=== PATIENT | male | born 1975 | race Two or more races ===

== ENCOUNTER 2019-02-18 16:58 | Inpatient (IN) | payer MEDICAID ==
[~2019-02-18] VITALS: Ht 180.3 cm; Wt 90.7 kg
[~2019-02-18 16:58] MED LIST: ASPIRIN-LOW81 MG GT; ATORVASTATIN CA40 MG GT; CARVEDILOL25 MG GT; HEPARIN SO5000 UNIT2 SUBQ; LACTULOSE20 GM/301 GT; NEXIUM40 MG GT; PLAVIX75 MG GT; SEROQUEL25 MG GT; SERTRALINE HCL25 MG GT; ZYRTEC10 MG GT
--- NOTE | 2019-02-18 16:58 | NUR ---
ED Nurse Note: PT BROUGHT IN BY EMS FROM [facility] DUE TO ABNORMAL LABS. LOW HGB OF 7.4 AND HCT OF 25.8 WHICH WERE TAKEN YESTERDAY. PT IS TRACH DEPENDENT AND NON VERBAL. UNABLE TO FOLLOW COMMANDS. SKIN IS PALE BUT WARM TO TOUCH. G TUBE IN PLACE.
--- NOTE | 2019-02-18 17:00 | NUR ---
Received pt on trach with vent setting AC 16-500ml-40%FiO2- peep of 5. Pt is trach dependent with Shiley cuffed size 8.0, secured by trach tie. Pt is awake but unable to follow commands. Redness noted around the stoma. Rosas rhonchi B/S heard upon auscultation, suctioned moderate amount thick/thin/frothy clear white secretions without incidents. Alarms are set and audible, vent is plugged into the red outlet, ambu bag is at bedside. Family member at bedside. No SOB or resp distress noted. PHILIP Montgomery made aware. Will continue to monitor.
--- NOTE | 2019-02-18 17:13 | NUR ---
ED Nurse Note: COLLECTED BLOOD/URINE THEN SENT.
--- NOTE | 2019-02-18 17:21 | Emergency Room Report ---
History of Present Illness General Chief Complaint: Abnormal Labs Source: Medical Record Present Illness HPI 43-year-old male history of tracheostomy presents with patient is nonverbal, patient has a tracheostomy, patient found to be anemic in the low sevens, unknown if patient is symptomatic, patient sent in for blood transfusion, unable to obtain a history from patient given the fact that he has a tracheostomy and is completely nonverbal. Onset: Unknown, no aggravating or alleviating factors, severity is mild Allergies: Coded Allergies: No Known Allergies (Unverified , 02/18/19) Patient History Limited by: medical condition - Tracheostomy, nonverbal Past Medical History: see triage record Reviewed Nursing Documentation: PMH: Agreed; PSxH: Agreed Nursing Documentation-PMH Past Medical History: No History, Except For Hx Cardiac Problems: Yes - HX OF CARDIAC ARREST, STEMI, HYPERLIPIDEMIA Hx Hypertension: Yes History Of Psychiatric Problem: Yes - SCHIZO, DEPRESSION Review of Systems All Other Systems: limited - Tracheostomy, nonverbal Physical Exam Vital Signs Date Time Temp Pulse Resp B/P (MAP) Pulse Ox O2 Delivery O2 Flow Rate FiO2 02/18/19 16:47 66 18 100/66 (77) 99 Trach Collar 5.0 Sp02 EP Interpretation: reviewed, normal General Appearance: well appearing, no apparent distress, alert Head: normocephalic, atraumatic Eyes: bilateral eye PERRL, bilateral eye EOMI ENT: uvula midline, moist mucus membranes Neck: supple, thyroid normal, supple/symm/no masses, other - Tracheostomy present Respiratory: lungs clear, no respiratory distress, no retraction, no accessory muscle use Cardiovascular #1: normal peripheral pulses, regular rate, rhythm, no edema, no gallop, no murmur Gastrointestinal: non tender, soft, no guarding, no rebound Musculoskeletal: normal inspection Neurologic: alert, other - Moving all 4 extremities Skin: no rash, warm/dry Medical Decision Making Diagnostic Impression: Primary Impression: Low hemoglobin Additional Impression: Symptomatic anemia ER Course 43-year-old male presents with anemia, [facility]. Labs drawn Transfusion started Patient admitted to Dr. Washington Laboratory Tests Test 02/18/19 17:00 White Blood Count 11.3 K/UL (4.8-10.8) H Red Blood Count 2.42 M/UL (4.70-6.10) L Hemoglobin 7.8 G/DL (14.2-18.0) L Hematocrit 23.4 % (42.0-52.0) L Mean Corpuscular Volume 97 FL (80-99) Mean Corpuscular Hemoglobin 32.2 PG (27.0-31.0) H Mean Corpuscular Hemoglobin Concent 33.2 G/DL (32.0-36.0) Red Cell Distribution Width 12.4 % (11.6-14.8) Platelet Count 378 K/UL (150-450) Mean Platelet Volume 7.8 FL (6.5-10.1) Neutrophils (%) (Auto) % (45.0-75.0) Lymphocytes (%) (Auto) % (20.0-45.0) Monocytes (%) (Auto) % (1.0-10.0) Eosinophils (%) (Auto) % (0.0-3.0) Basophils (%) (Auto) % (0.0-2.0) Differential Total Cells Counted 100 Neutrophils % (Manual) 66 % (45-75) Lymphocytes % (Manual) 20 % (20-45) Monocytes % (Manual) 8 % (1-10) Eosinophils % (Manual) 2 % (0-3) Basophils % (Manual) 2 % (0-2) Band Neutrophils 2 % (0-8) Platelet Estimate Adequate Platelet Morphology Normal Polychromasia 1+ Macrocytosis 1+ Prothrombin Time 11.2 SEC (9.30-11.50) Prothrombin Time INR 1.1 (0.9-1.1) PTT 24 SEC (23-33) Urine Color Yellow Urine Appearance Clear Urine pH 5 (4.5-8.0) Urine Specific [place] 1.020 (1.005-1.035) Urine Protein Negative (NEGATIVE) Urine Glucose (UA) Negative (NEGATIVE) Urine Ketones Negative (NEGATIVE) Urine Blood Negative (NEGATIVE) Urine Nitrite Negative (NEGATIVE) Urine Bilirubin Negative (NEGATIVE) Urine Urobilinogen Normal MG/DL (0.0-1.0) Urine Leukocyte Esterase Negative (NEGATIVE) Sodium Level 149 MMOL/L (136-145) H Potassium Level 3.5 MMOL/L (3.5-5.1) Chloride Level 109 MMOL/L (98-107) H Carbon Dioxide Level 30 MMOL/L (21-32) Anion Gap 10 mmol/L (5-15) Blood Urea Nitrogen 47 mg/dL (7-18) H Creatinine 1.6 MG/DL (0.55-1.30) H Estimate Glomerular Filtration Rate 47.4 mL/min (>60) Glucose Level 112 MG/DL (74-106) H Lactic Acid Level 1.00 mmol/L (0.4-2.0) Calcium Level 9.0 MG/DL (8.5-10.1) Phosphorus Level 4.8 MG/DL (2.5-4.9) Magnesium Level 1.8 MG/DL (1.8-2.4) Total Bilirubin 0.4 MG/DL (0.2-1.0) Aspartate Amino Transferase (AST) 91 U/L (15-37) H Alanine Aminotransferase (ALT) 103 U/L (12-78) H Alkaline Phosphatase 131 U/L (46-116) H Total Creatine Kinase 324 U/L (26-308) H Creatine Kinase MB 3.5 NG/ML (0.0-3.6) Creatine Kinase MB Relative Index 1.0 Troponin I 0.054 ng/mL (0.000-0.056) Pro-B-Type Natriuretic Peptide 2915 pg/mL (0-125) H Total Protein 7.8 G/DL (6.4-8.2) Albumin 3.0 G/DL (3.4-5.0) L Globulin 4.8 g/dL Albumin/Globulin Ratio 0.6 (1.0-2.7) L EKG Diagnostic Results EKG Time: 17:12 EP Interpretation: NSR, rate 66, QTc 425, no acute ST elevations Rate: normal Rhythm: NSR ST Segments: other - T wave V5 V6, 3, aVF, 2 Rhythm Strip Diag. Results Rhythm Strip Time: 17:27 EP Interpretation: yes Rate: 66 Rhythm: NSR, no PVC's, no ectopy Chest X-Ray Diagnostic Results Chest X-Ray Diagnostic Results : Chest X-Ray Ordered: Yes # of Views/Limited/Complete: 1 View Indication: Other - anemia EP Interpretation: Yes Interpretation: no consolidation, no effusion, no pneumothorax, no acute cardiopulmonary disease Impression: No acute disease Electronically Signed by: Tomy Chaves MD Last Vital Signs Date Time Temp Pulse Resp B/P (MAP) Pulse Ox O2 Delivery O2 Flow Rate FiO2 02/18/19 16:47 66 18 100/66 (77) 99 Trach Collar 5.0 Disposition: ADMITTED INPATIENT Condition: Stable Tomy Chaves MD Feb 18, 2019 17:21
[2019-02-18 17:30] VITALS: BP 110/75
--- NOTE | 2019-02-18 17:33 | Diagnostic Imaging Report ---
Indication: Shortness of breath Technique: One view of the chest Comparison: none Findings: There is a tracheostomy in place. The heart is mildly enlarged. There is some atelectasis at the right lung base. Lungs and pleural spaces otherwise clear. Impression: No acute process Borderline cardiomegaly
[2019-02-18 17:43] LABS: ANION GAP 10 mmol/L (5-15); BLOOD UREA NITROGEN 47 mg/dL (7-18); CARBON DIOXIDE 30 MMOL/L (21-32); CHLORIDE 109 MMOL/L (98-107); CREATININE 1.6 MG/DL (0.55-1.30); POTASSIUM 3.5 MMOL/L (3.5-5.1); SODIUM 149 MMOL/L (136-145)
[2019-02-18 17:54] LABS: HEMATOCRIT 23.4 % (42.0-52.0); HEMOGLOBIN 7.8 G/DL (14.2-18.0); MEAN CORPUSCULAR VOLUME 97 FL (80-99); PLATELET COUNT 378 K/UL (150-450); RED BLOOD COUNT 2.42 M/UL (4.70-6.10); RED CELL DISTRIBUTION WIDTH 12.4 % (11.6-14.8); WHITE BLOOD COUNT 11.3 K/UL (4.8-10.8)
[2019-02-18 17:56] LABS: ALANINE AMINOTRANSFERASE 103 U/L (12-78); ALBUMIN/GLOBULIN RATIO 0.6 (1.0-2.7); ALKALINE PHOSPHATASE 131 U/L (46-116); APPEARANCE,URINE CLEAR; ASPARTATE AMINO TRANSFERASE 91 U/L (15-37); BILIRUBIN, URINE NEGATIVE (NEGATIVE); BILIRUBIN,TOTAL 0.4 MG/DL (0.2-1.0); CKMB 3.5 NG/ML (0.0-3.6); CREATINE KINASE 324 U/L (26-308); GLUCOSE, URINE (UA) NEGATIVE (NEGATIVE); KETONES,URINE NEGATIVE (NEGATIVE); LEUKOCYTE ESTERASE ,URINE NEGATIVE (NEGATIVE); NITRITE,URINE NEGATIVE (NEGATIVE); PH,URINE 5 (4.5-8.0); PHOSPHORUS 4.8 MG/DL (2.5-4.9); PROTEIN,URINE NEGATIVE (NEGATIVE); UROBILINOGEN,URINE NORMAL MG/DL (0.0-1.0)
--- NOTE | 2019-02-18 17:58 | NUR ---
ED Nurse Note: FAMILY MEMBERS AT THE BED SIDE.
[2019-02-18 18:00] LABS: COLOR,URINE YELLOW; INR 1.1 (0.9-1.1)
[2019-02-18] MEDS ORDERED: LORazepam Inj 2mg/ml 1ml IV ONE ×2 (18:15→19:45)
--- NOTE | 2019-02-18 19:17 | NUR ---
RESPIRATORY NOTE: Received pt in ED on AC 16, 500VT, 40%, PEEP +5. Pt is trach-dependent w/ a cuffed, Shiley 8 tube. Pt awake/disoriented. B/S cleve. rhonchi, sxn small to moderate amounts of thick, pale-yellow secretions. Vent plugged into red outlet, ambubag at bedside. Pt in no apparent distress at this time. Will continue plan of care.
--- NOTE | 2019-02-18 19:27 | NUR ---
HAND-OFF: Report given to KWAN PALACIOS.
[2019-02-18 19:30] VITALS: BP 105/71
--- NOTE | 2019-02-18 19:30 | NUR ---
ED Nurse Note: RECIEVED REPORT FROM PHILIP ALEMAN AND ASSUMED CARE.
[2019-02-18] MEDS ORDERED: LORazepam Inj 2mg/ml 1ml ONE (19:33)
--- NOTE | 2019-02-18 19:35 | NUR ---
ED Nurse Note: NOTED PT RESTLESS, TRYING TO REMOVE IV LINE AND TRACH, ERMD NOTIFIED, RECEIVED ORDER ATIVAN 2MG VIA IVP, ONCE.
--- NOTE | 2019-02-18 19:40 | NUR ---
ED Nurse Note: NOTED SKIN SCRATCH SNELL ON ABD AND PENILE AREA, NOTED SKIN MACERATION ON POSTERIOR SACRAL AREA AND PENILE AREA W/ RASH AND REDNESS, WILL CONT MONITOR.
[2019-02-18 20:00] VITALS: BP 109/60
--- NOTE | 2019-02-18 20:00 | NUR ---
ED Nurse Note: PT CONSTANTLY MOVING ALL EXTREMITIES, MAKING ATTEMPTS TO REMOVE TRACH AND IV LINE, ERMD NOTIFIED, NONBEHAVIORAL RESTRAINTS ORDER RECEIVED AND APPLIED, FAMILY EDUCATED () VIA VERBAL DISCUSSION, NO INJURIES OCCURED AT THIS TIEM, CMS INTACT BUE/BLE, PULSES +2 BUE/BLE, SKIN INTACT, WILL CONT MONITOR.
[2019-02-18] MEDS ORDERED: DiphenhydrAMINE 50mg/ml Inj IVP ONE (20:15)
--- NOTE | 2019-02-18 20:16 | NUR ---
ED Nurse Note: PT'S AND DAUGHTER AT THE BEDSIDE, NOTIFIED REGARDING BLOOD TRANSFUSION, CONSENT FORM SIGNED, PT'S FAMILY MEMBER VERBALIZED UNDERSTANDING AND THE POSSIBLE RISKS AND COMPLICATIONS.
--- NOTE | 2019-02-18 20:25 | NUR ---
ED Nurse Note: PT CLEANED AND CHANGED INTO NEW GOWN, WARM BLANKET PROVIDED FOR COMFORT, SAFETY PRECAUTIONS IN PLACE, WILL CONT MONITOR. VSS. NSR ON PHARMACIST TECHNICIAN.
--- NOTE | 2019-02-18 20:40 | NUR ---
ED Nurse Note: CALLED BLOOD BANK TO VERIFY BLOOD WORK, BLOOD NOT PREPARED AT THIS TIME. PER TECH, WILL CALL BACK WHEN THE BLOOD IS READY.
[2019-02-18 21:05] VITALS: BP 99/65
--- NOTE | 2019-02-18 21:35 | NUR ---
ED Nurse Note: NO BLOOD TRANSFUSION REACTION NOTED AT THIS TIME. WILL CONT MONITOR.
--- NOTE | 2019-02-18 21:42 | NUR ---
ED Nurse Note: CALLED TO GIVE REPORT TO SDU, RECEIVING RN CURRENTLY UNAVAILABLE, PER MALLORY, RN WILL CALL BACK IN 15 MIN.
--- NOTE | 2019-02-18 22:00 | NUR ---
ED Nurse Note: REPORT GIVEN TO PHILIP LIM FROM SDU.
--- NOTE | 2019-02-18 22:10 | NUR ---
ED Nurse Note: pt transferred to SDU, pt has no belongings, sent w/ list, family at the bedside, vss, nsr on child monitor, care endorsed to PHILIP Chavis from sdu. RT present.
[2019-02-18 22:15] VITALS: BP 116/79
--- NOTE | 2019-02-18 22:15 | NUR ---
NURSE NOTES: Patient arrived from ED via gurney and placed into bed. Patient is trach Shiley 8 to vent with settings of AC:16, TV:500, FiO2:40% PEEP:5 and O2 saturating at 100%. manager monitoring is placed, linens and gown changed. Patient shows no signs of distress. Family member at bedside. No belongings. Report received from PHILIP Vega. Will initiate plan of care.
[2019-02-19] VITALS: BP 107/74
[2019-02-19] MEDS ORDERED: Morphine Sulfate 2mg/ml Inj(IV/IM USE ONLY) IVP PRN (01:15)
[2019-02-19] MEDS ORDERED: Nitroglycerin Subl 0.4mg tab SL PRN (01:15)
[2019-02-19] MEDS ORDERED: Miralax 17gm pkt ORAL PRN (01:15)
[2019-02-19] MEDS: D5 1/2NS 1,000 ML IV SCH ×2 (02:36→15:16)
[2019-02-19 04:00] VITALS: BP 130/75
[2019-02-19 04:33] LABS: BASOPHILS % (AUTO) 0.7 % (0.0-2.0); EOSINOPHILS % (AUTO) 2.5 % (0.0-3.0); HEMATOCRIT 30.7 % (42.0-52.0); HEMOGLOBIN 9.8 G/DL (14.2-18.0); LYMPHOCYTES % (AUTO) 18.5 % (20.0-45.0); MEAN CORPUSCULAR VOLUME 96 FL (80-99); MONOCYTES % (AUTO) 5.9 % (1.0-10.0); NEUTROPHILS % (AUTO) 72.4 % (45.0-75.0); PLATELET COUNT 373 K/UL (150-450); RED BLOOD COUNT 3.18 M/UL (4.70-6.10); RED CELL DISTRIBUTION WIDTH 13.8 % (11.6-14.8); WHITE BLOOD COUNT 11.5 K/UL (4.8-10.8)
[2019-02-19 04:47] LABS: ALANINE AMINOTRANSFERASE 94 U/L (12-78); ALBUMIN 3.3 G/DL (3.4-5.0); ALBUMIN/GLOBULIN RATIO 0.7 (1.0-2.7); ALKALINE PHOSPHATASE 124 U/L (46-116); ANION GAP 11 mmol/L (5-15); ASPARTATE AMINO TRANSFERASE 77 U/L (15-37); BILIRUBIN,TOTAL 0.5 MG/DL (0.2-1.0); BLOOD UREA NITROGEN 42 mg/dL (7-18); CALCIUM 9.3 MG/DL (8.5-10.1); CARBON DIOXIDE 29 MMOL/L (21-32); CHLORIDE 111 MMOL/L (98-107); CREATININE 1.5 MG/DL (0.55-1.30); PHOSPHORUS 4.5 MG/DL (2.5-4.9); POTASSIUM 3.8 MMOL/L (3.5-5.1); SODIUM 151 MMOL/L (136-145)
--- NOTE | 2019-02-19 06:31 | NUR ---
NURSE NOTES: Observed patient continuous attempting to remove lines, condom catheter and tugging on GTube. Patient is also seen being restless; shifting around in bed which potentially can cause a fall. Also, swinging of arms and legs to personnel throughout the night. Per patient's spouse that Neema Balderas also utilizes restraints for patient. Bilateral soft wrist restraints are placed and Dr. Dietrich made aware.
--- NOTE | 2019-02-19 07:00 | NUR ---
NURSE NOTES: received patient report from tiny hernandez. patient is on bed awake. on B soft wrist restraints. not in acute distress. on vent at prescribed rate. bed is low and locked for safety. will follow plan of care.
--- NOTE | 2019-02-19 07:15 | NUR ---
HAND-OFF: Report given to PHILIP DONAHUE.
[2019-02-19] MEDS: Albuterol/Ipratropium 3ml neb HHN SCH ×3 (07:17→22:44)
[2019-02-19 08:00] VITALS: BP 118/80
[2019-02-19] MEDS: Lactulose 20gm/30ml UDC GT SCH (08:37)
[2019-02-19] MEDS: Aspirin EC 81mg tab ORAL SCH (08:37)
--- NOTE | 2019-02-19 08:47 | General Progress Note ---
Assessment/Plan Assessment/Plan: Anemia chronic respiratory failure GT dependent elevated LFTS GTF>> increase to 60 cc Anemia work up abd us hepatitis panel fu labs GI procedures on Thursday if needed Subjective ROS Limited/Unobtainable: No Allergies: Coded Allergies: No Known Allergies (Unverified , 02/18/19) Objective Last 24 Hour Vital Signs Date Time Temp Pulse Resp B/P (MAP) Pulse Ox O2 Delivery O2 Flow Rate FiO2 02/19/19 08:00 98.2 79 27 118/80 (93) 100 02/19/19 07:22 62 16 100 Mechanical Ventilator 40 02/19/19 07:13 72 17 100 Mechanical Ventilator 40 02/19/19 07:09 65 18 40 02/19/19 04:55 76 21 40 02/19/19 04:00 70 02/19/19 04:00 Mechanical Ventilator 02/19/19 04:00 97.5 64 16 130/75 (93) 100 02/19/19 04:00 40 02/19/19 03:22 62 16 40 02/19/19 00:38 72 16 40 02/19/19 00:00 97.3 64 19 107/74 (85) 100 02/19/19 00:00 40 02/19/19 00:00 Mechanical Ventilator 02/18/19 23:29 70 02/18/19 23:00 66 24 40 02/18/19 22:15 Mechanical Ventilator 02/18/19 22:15 97.7 68 19 116/79 (91) 100 02/18/19 22:10 97.7 61 16 105/65 100 Mechanical Ventilator 02/18/19 22:05 97.7 61 16 02/18/19 21:35 97.7 63 16 02/18/19 21:20 98.1 63 17 02/18/19 21:15 98.1 66 17 02/18/19 21:10 98.3 65 18 02/18/19 21:05 98.3 66 18 02/18/19 21:05 98.3 66 18 99/65 100 Mechanical Ventilator 5.0 40 02/18/19 21:01 68 20 40 02/18/19 20:00 98.6 74 19 109/60 100 Mechanical Ventilator 5.0 40 02/18/19 20:00 72 24 Mechanical Ventilator 5.0 40 02/18/19 19:30 98.6 75 8 105/71 100 Mechanical Ventilator 5.0 40 02/18/19 19:13 72 24 40 02/18/19 17:30 71 15 110/75 100 Mechanical Ventilator 5.0 40 02/18/19 17:00 65 17 100 Mechanical Ventilator 40 02/18/19 17:00 65 17 40 02/18/19 16:58 40 02/18/19 16:47 66 18 100/66 (77) 99 Trach Collar 5.0 Intake and Output 02/18/19 02/19/19 18:59 06:59 Intake Total 425 ml Balance 425 ml Intake Free Water 60 ml IV Total 305 ml Tube Feeding 60 ml # Voids 1 1 # Bowel Movements 1 Laboratory Tests 02/18/19 17:00: White Blood Count 11.3H, Red Blood Count 2.42L, Hemoglobin 7.8L, Hematocrit 23.4L, Mean Corpuscular Volume 97, Mean Corpuscular Hemoglobin 32.2H, Mean Corpuscular Hemoglobin Concent 33.2, Red Cell Distribution Width 12.4, Platelet Count 378, Mean Platelet Volume 7.8, Neutrophils (%) (Auto) , Lymphocytes (%) ( Auto) , Monocytes (%) (Auto) , Eosinophils (%) (Auto) , Basophils (%) (Auto) , Differential Total Cells Counted 100, Neutrophils % (Manual) 66, Lymphocytes % ( Manual) 20, Monocytes % (Manual) 8, Eosinophils % (Manual) 2, Basophils % ( Manual) 2, Band Neutrophils 2, Platelet Estimate Adequate, Platelet Morphology Normal, Polychromasia 1+, Macrocytosis 1+, Prothrombin Time 11.2, Prothromb Time International Ratio 1.1, Activated Partial Thromboplast Time 24, Urine Color Yellow, Urine Appearance Clear, Urine pH 5, Urine Specific [place] 1.020, Urine Protein Negative, Urine Glucose (UA) Negative, Urine Ketones Negative, Urine Blood Negative, Urine Nitrite Negative, Urine Bilirubin Negative, Urine Urobilinogen Normal, Urine Leukocyte Esterase Negative, Sodium Level 149H, Potassium Level 3.5, Chloride Level 109H, Carbon Dioxide Level 30, Anion Gap 10 , Blood Urea Nitrogen 47H, Creatinine 1.6H, Estimat Glomerular Filtration Rate 47.4, Glucose Level 112H, Lactic Acid Level 1.00, Calcium Level 9.0, Phosphorus Level 4.8, Magnesium Level 1.8, Total Bilirubin 0.4, Aspartate Amino Transf (AST /SGOT) 91H, Alanine Aminotransferase (ALT/SGPT) 103H, Alkaline Phosphatase 131H , Total Creatine Kinase 324H, Creatine Kinase MB 3.5, Creatine Kinase MB Relative Index 1.0, Troponin I 0.054, Pro-B-Type Natriuretic Peptide 2915H, Total Protein 7.8, Albumin 3.0L, Globulin 4.8, Albumin/Globulin Ratio 0.6L 02/19/19 03:43: White Blood Count 11.5H, Red Blood Count 3.18L, Hemoglobin 9.8L, Hematocrit 30.7 #L, Mean Corpuscular Volume 96, Mean Corpuscular Hemoglobin 30.8, Mean Corpuscular Hemoglobin Concent 31.9L, Red Cell Distribution Width 13.8, Platelet Count 373, Mean Platelet Volume 8.9, Neutrophils (%) (Auto) 72.4, Lymphocytes (%) (Auto) 18.5L, Monocytes (%) (Auto) 5.9, Eosinophils (%) (Auto) 2.5, Basophils (%) (Auto) 0.7, Sodium Level 151H, Potassium Level 3.8, Chloride Level 111H, Carbon Dioxide Level 29, Anion Gap 11, Blood Urea Nitrogen 42H, Creatinine 1.5H, Estimat Glomerular Filtration Rate 51.1, Glucose Level 121H, Calcium Level 9.3, Phosphorus Level 4.5, Magnesium Level 1.7L, Total Bilirubin 0.5, Aspartate Amino Transf (AST/SGOT) 77H, Alanine Aminotransferase (ALT/SGPT) 94H, Alkaline Phosphatase 124H, Troponin I 0.051, Total Protein 7.8, Albumin 3.3L, Globulin 4.5, Albumin/Globulin Ratio 0.7L Height (Feet): 5 Height (Inches): 11.00 Weight (Pounds): 200 General Appearance: no apparent distress EENT: normal ENT inspection Neck: supple Cardiovascular: normal rate Respiratory/Chest: decreased breath sounds Abdomen: normal bowel sounds, non tender, soft Extremities: non-tender Servando Sharif MD Feb 19, 2019 08:47
[2019-02-19] MEDS ORDERED: Carvedilol 25mg Tab GT SCH (09:00)
[2019-02-19 12:00] VITALS: BP 115/72
[2019-02-19] MEDS: LORazepam Inj 2mg/ml 1ml IV PRN ×3 (13:16→23:26)
--- NOTE | 2019-02-19 15:54 | History & Physical ---
History and Physical History & Physicial Dictated for Int Med-Dr Washington no. [id number]. Carmelo Figueroa MD Feb 19, 2019 15:54
[2019-02-19 16:00] VITALS: BP 109/73
--- NOTE | 2019-02-19 16:40 | NUR ---
CASE MANAGEMENT: REVIEW 43Y/M BIBA FROM [facility] CC: ABNORMAL LABS SI: ANEMIA . CHRONIC RESP FAILURE . T 98.6 HR 75 RR 24 BP 105/71 SAT 100% MECH VENT FIO2 40 H/H 7.8/23.4 NA 149 BUN 47 CR 1.6 AST 91 ALT 103 BNP 2915 IS: ATIVAN IV X1 NS IVF BOLUS X1 BENADRYL IV X1 PRBC'S 1UNIT PATIENT ADMITTED TO STEP DOWN UNIT 02/18/2019 DCP: PATIENT IS FROM [facility]
--- NOTE | 2019-02-19 18:29 | NUR ---
NURSE NOTES: per family request, condom catheter was removed. benefits of keeping the patient dry explained to the family but family member still requested to removed it. family member said that it is uncomfortable for him.
--- NOTE | 2019-02-19 19:15 | NUR ---
NURSE NOTES: Received patient from PHILIP Shepard. Will continue plan of care.
[2019-02-19 20:00] VITALS: BP 122/70
--- NOTE | 2019-02-19 21:15 | NUR ---
NURSE NOTES: Family member request to release the left wrist restraint to see if patient is more comfortable turning to the side. Informed family that it is possible but the risk of patient pulling on medical devices and turning out of bed and falling. They are aware and will take responsibility to monitor him while off restraint. Restraint taken off, bed rails are raised and family members remain at bedside.
[2019-02-19] MEDS: Sertraline 50mg tab GT SCH (21:32)
[2019-02-19] MEDS: Atorvastatin 80mg tab GT SCH (21:32)
--- NOTE | 2019-02-19 21:47 | Diagnostic Imaging Report ---
EXAM: US Abdomen Complete CLINICAL HISTORY: ABD PAIN TECHNIQUE: Real-time ultrasound of the abdomen (complete) with image documentation. COMPARISON: No relevant prior studies available. FINDINGS: Liver: Increased echogenicity. 18 cm. No mass. No intrahepatic bile duct dilation. Gallbladder: No gallstones. No pericholecystic fluid. No gallbladder wall thickening. Negative Britt's sign. Common bile duct: No stones. No dilation. 6 mm. Pancreas: Unremarkable. Kidneys: 11 cm right and 12 cm left. No stones. No solid mass. No hydronephrosis. Spleen: Unremarkable. 1 cm. Aorta: No aneurysm. Inferior vena cava: Unremarkable. IMPRESSION: Hepatic steatosis.
[2019-02-20] VITALS: BP 126/89
--- NOTE | 2019-02-20 03:00 | History and Physical Report ---
DATE OF ADMISSION: 02/18/2019 CHIEF COMPLAINT: The patient is a 43-year-old male who presents with abnormal laboratories. HISTORY OF PRESENT ILLNESS: The patient was admitted to [facility] from 01/29/2019 to 02/16/2019. The patient is admitted for ST elevated myocardial infarction. The patient had suffered a cardiac arrest. The patient is status post percutaneous transluminal coronary angioplasty with two stents placed. The patient is also status post tracheostomy and percutaneous endoscopic gastrostomy tube placement. The patient himself is nonverbal and much of the history and physical is taken from the patient's chart. According to staff at [facility], the patient began to experience shortness of breath yesterday 02/18/2019. The patient has a hemoglobin of 7.4. The patient was transferred to [facility] for anemia workup. REVIEW OF SYSTEMS: Unable to assess secondary to the patient's mental status. PAST MEDICAL HISTORY: Significant for: 1. ST-elevated myocardial infarction on 01/29/2019 as above. 2. Acute on chronic renal failure. 3. Hypotension. 4. Coronary artery disease . 5. Hypercholesterolemia. 6. Schizophrenia. PAST SURGICAL HISTORY: Significant for: 1. PEG placement. 2. Tracheostomy. 3. Percutaneous transluminal coronary angioplasty as above. CURRENT MEDICATIONS: 1. Aspirin 81 mg p.o. daily. 2. Atorvastatin 80 mg per G-tube nightly. 3. Carvedilol 25 mg per G-tube twice daily. 4. Sertraline 50 mg per G-tube nightly. 5. Heparin 5000 units subcutaneously twice daily. 6. Esomeprazole 40 mg per G-tube daily. 7. Plavix 75 mg per G-tube daily. 8. Seroquel 50 mg per G-tube daily. 9. Zyrtec 10 mg per G-tube daily. 10. Bicitra 30 mL per G-tube twice daily. 11. Vancomycin 125 mg per G-tube four times daily. 12. Lactulose 30 mL per G-tube daily. 13. Pro-Stat 30 grams per G-tube daily. 14. Benadryl 25 mg per G-tube q.6 h. 15. Haldol 2 mg IM q.4 h. p.r.n. ALLERGIES: No known drug allergies. SOCIAL HISTORY: The patient is . The patient is a resident of [facility] as above. PHYSICAL EXAMINATION: VITAL SIGNS: Temperature 97.3, respirations 19, pulse 64, and blood pressure 107/74. GENERAL: The patient is well-developed and well-nourished. Nonverbal male, who is ventilator dependent. HEENT: Eyes, pupils equal and responsive to light and accommodation. Extraocular movements are intact. NECK: Supple without lymphadenopathy. Tracheostomy is present. CARDIOVASCULAR: Regular rate. S1 and S2 normal without murmurs, rubs, or gallops. CHEST: A few diffuse wheezes bilaterally. Otherwise, clear to auscultation without rales. ABDOMEN: Soft, nontender, and nondistended. Positive bowel sounds. No evidence of hepatosplenomegaly. Currently, no rebound or guarding noted. EXTREMITIES: Negative for clubbing, cyanosis, or edema. NEUROLOGIC: Unable to assess. LABORATORY STUDIES: WBC 11.3, hemoglobin 7.8, hematocrit 23.4, and platelets 338,000. Sodium 149, potassium 3.5, chloride 109, CO2 30, BUN 47, creatinine 1.6, and glucose 112. AST elevated at 91, ALT elevated at 103, and troponin 0.054. Urinalysis showed within normal limits. ASSESSMENT: This is a 43-year-old male with. 1. Anemia. 2. Vent-dependent respiratory failure. 3. Coronary artery disease, status post ST elevated myocardial infarction. 4. Anoxic encephalopathy. 5. Dysphagia. 6. Renal failure. 7. Hypertension. 8. Hypercholesteremia. 9. Schizophrenia. 10. Anemia, workup is pending. PLAN: 1. A Gastroenterology consultation is obtained with Dr. Servando Sharif for possible endoscopy/colonoscopy. We will follow recommendations of Gastroenterology. The patient will be transfused RBC when hemoglobin is less than 8.0. 2. Vent-dependent respiratory failure. A Pulmonary consultation obtained with Dora Dietrich. We will follow recommendation of Pulmonary. 3. Coronary artery disease/ST-elevated myocardial infarction. A Cardiology consultation with Dr. Tod Smalls. 4. Anoxic encephalopathy. 5. Dysphagia. The patient is status post percutaneous endoscopic gastrostomy tube placement. 6. Renal failure. A Nephrology consultation obtained with Dr. Altman. 7. Hypertension. Continue Coreg as above. 8. Hypercholesterolemia. Continue atorvastatin as above. 9. Schizophrenia . Carmelo Seth M.D. DR: JUANCARLOS JOB#: [id number] CC:
[2019-02-20] MEDS: D5 1/2NS 1,000 ML IV SCH ×2 (03:46→16:13)
[2019-02-20] MEDS: LORazepam Inj 2mg/ml 1ml IV PRN ×2 (03:47→20:37)
[2019-02-20 04:00] VITALS: BP 136/61
--- NOTE | 2019-02-20 06:32 | General Progress Note ---
Assessment/Plan Assessment/Plan: Anemia chronic respiratory failure GT dependent elevated LFTS GTF>> increase to 60 cc Anemia work up abd us hepatitis panel fu labs GI procedures on Thursday if needed Subjective ROS Limited/Unobtainable: No Allergies: Coded Allergies: No Known Allergies (Unverified , 02/18/19) Objective Last 24 Hour Vital Signs Date Time Temp Pulse Resp B/P (MAP) Pulse Ox O2 Delivery O2 Flow Rate FiO2 02/20/19 05:01 87 21 40 02/20/19 04:00 97.2 104 31 136/61 (86) 100 02/20/19 04:00 Mechanical Ventilator 02/20/19 04:00 40 02/20/19 03:37 104 02/20/19 02:44 88 22 40 02/20/19 00:40 82 24 40 02/20/19 00:00 Mechanical Ventilator 02/20/19 00:00 97.8 93 29 126/89 (101) 100 02/19/19 23:34 92 02/19/19 22:51 81 18 100 Mechanical Ventilator 40 02/19/19 22:44 84 21 100 Mechanical Ventilator 40 02/19/19 22:42 84 21 40 02/19/19 20:44 81 22 40 02/19/19 20:00 40 02/19/19 20:00 Mechanical Ventilator 02/19/19 20:00 97.7 88 18 122/70 (87) 100 02/19/19 19:44 92 02/19/19 19:20 87 20 40 02/19/19 17:26 73 26 40 02/19/19 16:00 97.9 72 16 109/73 (85) 100 02/19/19 16:00 40 02/19/19 16:00 Mechanical Ventilator 02/19/19 15:23 69 02/19/19 15:10 69 16 100 Mechanical Ventilator 40 02/19/19 14:58 70 16 100 Mechanical Ventilator 40 02/19/19 14:55 70 16 40 02/19/19 12:49 89 29 40 02/19/19 12:00 98.3 74 24 115/72 (86) 100 02/19/19 12:00 40 02/19/19 12:00 66 02/19/19 12:00 Mechanical Ventilator 02/19/19 11:03 65 19 40 02/19/19 08:48 84 28 40 02/19/19 08:00 69 02/19/19 08:00 Mechanical Ventilator 02/19/19 08:00 98.2 79 27 118/80 (93) 100 02/19/19 08:00 40 02/19/19 07:22 62 16 100 Mechanical Ventilator 40 02/19/19 07:13 72 17 100 Mechanical Ventilator 40 02/19/19 07:09 65 18 40 Intake and Output 02/19/19 02/20/19 18:59 06:59 Intake Total 1005 ml 812.5 ml Output Total 625 ml 5 ml Balance 380 ml 807.5 ml Intake Free Water 40 ml IV Total 825 ml 392.5 ml Tube Feeding 140 ml 360 ml Other 60 ml Output Urine Total 625 ml 5 ml # Bowel Movements 3 Height (Feet): 5 Height (Inches): 11.00 Weight (Pounds): 200 General Appearance: confused, agitated EENT: normal ENT inspection Neck: supple Cardiovascular: normal rate Respiratory/Chest: decreased breath sounds Abdomen: normal bowel sounds, non tender, soft Extremities: non-tender Servando Sharif MD Feb 20, 2019 06:32
[2019-02-20] MEDS: Albuterol/Ipratropium 3ml neb HHN SCH ×3 (07:05→22:39)
[2019-02-20 07:09] LABS: BASOPHILS % (AUTO) 0.9 % (0.0-2.0); EOSINOPHILS % (AUTO) 2.9 % (0.0-3.0); HEMATOCRIT 29.6 % (42.0-52.0); HEMOGLOBIN 9.5 G/DL (14.2-18.0); LYMPHOCYTES % (AUTO) 22.6 % (20.0-45.0); MEAN CORPUSCULAR VOLUME 97 FL (80-99); MONOCYTES % (AUTO) 7.8 % (1.0-10.0); NEUTROPHILS % (AUTO) 65.9 % (45.0-75.0); PLATELET COUNT 352 K/UL (150-450); RED BLOOD COUNT 3.06 M/UL (4.70-6.10); RED CELL DISTRIBUTION WIDTH 13.1 % (11.6-14.8); WHITE BLOOD COUNT 13.7 K/UL (4.8-10.8)
--- NOTE | 2019-02-20 07:10 | NUR ---
NURSE NOTES: received patient report from tiny hernandez. patient is on bed awake. not in acute distress. agitated. no arrythmias reported during the night. bed i slow and locked for safety. will follow plan of care.
--- NOTE | 2019-02-20 07:16 | NUR ---
RESPIRATORY NOTE: Patient received mechanically ventilated on PB 840 with current ordered vent settings. Patient has tach size 8.0 Shiley cuffed that is secured with trach tie and guard. Vent alarms are functional and audible. There is an ambu bag available at the bedside and the vent is connected to a red outlet. Will continue to monitor.
--- NOTE | 2019-02-20 07:16 | NUR ---
HAND-OFF: Report given to PHILIP Shepard.
[2019-02-20 07:17] LABS: INR 1.1 (0.9-1.1)
[2019-02-20 07:35] LABS: ALANINE AMINOTRANSFERASE 84 U/L (12-78); ALBUMIN 3.2 G/DL (3.4-5.0); ALBUMIN/GLOBULIN RATIO 0.7 (1.0-2.7); ALKALINE PHOSPHATASE 122 U/L (46-116); ANION GAP 8 mmol/L (5-15); ASPARTATE AMINO TRANSFERASE 62 U/L (15-37); BILIRUBIN,TOTAL 0.5 MG/DL (0.2-1.0); BLOOD UREA NITROGEN 31 mg/dL (7-18); CALCIUM 8.8 MG/DL (8.5-10.1); CARBON DIOXIDE 30 MMOL/L (21-32); CHLORIDE 113 MMOL/L (98-107); CREATININE 1.5 MG/DL (0.55-1.30); POTASSIUM 3.7 MMOL/L (3.5-5.1); SODIUM 151 MMOL/L (136-145)
[2019-02-20 07:36] LABS: PHOSPHORUS 3.9 MG/DL (2.5-4.9)
[2019-02-20 07:51] LABS: IRON 53 ug/dL (50-175); TOTAL IRON BINDING CAPACITY 193 ug/dL (250-450)
[2019-02-20 07:54] LABS: % IRON SATURATION 27 % (15-50)
[2019-02-20 08:00] VITALS: BP 109/71
[2019-02-20] MEDS: Lactulose 20gm/30ml UDC GT SCH (08:37)
[2019-02-20] MEDS: Aspirin EC 81mg tab ORAL SCH (08:37)
--- NOTE | 2019-02-20 11:06 | NUR ---
NURSE NOTES: left a message to dr richards regarding patients magnesium level of 1.5. awaits callback and new order.
--- NOTE | 2019-02-20 11:26 | NUR ---
NURSE NOTES: dr richards called back for mag level of 1.5. ordered to give 2gm mag so4. will take note and carry out.
[2019-02-20 12:00] VITALS: BP 133/83
--- NOTE | 2019-02-20 13:09 | NUR ---
RD ASSESSMENT & RECOMMENDATIONS SEE CARE ACTIVITY FOR COMPLETE ASSESSMENT DAILY ESTIMATED NEEDS: Needs based on Critical care 80.5kg 22-28 kcals/kg [id number] total kcals 1.2-2 g protein/kg 97-161 g total protein 25-30 mL/kg 7434-4926 total fluid mLs NUTRITION DIAGNOSIS: Swallowing difficulty r/t dysphagia and respiratory status as evidenced by s/p recent cardiac arrest, now trach and PEG dep. (CURRENT TF: Osmolite 1.5 goal of 60ml) ENTERAL NUTRITION RECOMMENDATIONS: Glucerna 1.5 @50ml/hr x24 hrs to provide 1200ml, 1800 kcal, 99g pro, 911ml free H2O - REC TF CHANGE FOR CARB CONTROL FORMULA (A1C 5.8) - Start @30ml/hr for 6 hrs. 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
--- NOTE | 2019-02-20 13:32 | Cardiology Report ---
APPROVED REPORT EXAM: Two-dimensional and M-mode echocardiogram with Doppler and color Doppler. INDICATION Cardiac arrest M-Mode DIMENSIONS IVSd1.4 (0.7-1.1cm)Left Atrium (MM)3.8 (1.6-4.0cm) LVDd5.3 (3.5-5.6cm)Aortic Root3.6 (2.0-3.7cm) PWd1.1 (0.7-1.1cm)Aortic Cusp Exc.2.0 (1.5-2.0cm) LVDs3.9 (2.5-4.0cm) PWs1.4 cm Normal left ventricular chamber size. Slightly depressed systolic function and wall motion with hypokinetic posterior and proximal to mid inferior ruiz Left ventricular ejection fraction estimated to be 45-50 %. Mild left ventricular hypertrophy. No evidence of pericardial effusion. All other cardiac chamber sizes are within normal limits. Focal aortic valve sclerosis with adequate cusp excursion. Thickened mitral valve leaflets with normal excursion. Mitral annulus and aortic root calcification. Pulmonic valve not well visualized. Normal tricuspid valve structure. Subcostal views not obtainable due to G-tube. A color flow and spectral Doppler study was performed and revealed: No aortic regurgitation. Mild mitral regurgitation. reduced left ventricular relaxation c/w impaired relaxation diastolic dysfunction. No tricuspid regurgitation. Tricuspid systolic velocities suggests peak right ventricular systolic pressure of 7 mmHg. No pulmonic regurgitation present.
--- NOTE | 2019-02-20 14:26 | Internal Med Progress Note ---
Subjective Date of Service: Feb 20, 2019 Physician Name Carmelo Seth Attending Physician Shane Washington MD Current Medications Medications (Trade) Dose Ordered Sig/Rasta Route PRN Reason Start Time Stop Time Status Last Admin Dose Admin Acetaminophen (Tylenol) 650 mg Q6H PRN ORAL Mild Pain/Temp > 100.5 02/19/19 01:00 03/21/19 00:59 Albuterol/ Ipratropium (Albuterol/ Ipratropium) 3 ml Q8HRT HHN 02/19/19 07:00 02/24/19 06:59 02/20/19 14:11 Aspirin (Ecotrin) 81 mg DAILY ORAL 02/19/19 09:00 03/21/19 08:59 02/20/19 08:37 Atorvastatin Calcium (Lipitor) 80 mg BEDTIME GT 02/19/19 21:00 03/21/19 20:59 02/19/19 21:32 Cetirizine HCl (ZyrTEC) 10 mg DAILY ORAL 02/19/19 09:00 03/21/19 08:59 02/20/19 08:37 Dextrose (Dextrose 50%) STAT PRN IV Hypoglycemia 02/19/19 01:15 03/21/19 01:14 Dextrose/Sodium Chloride 1,000 ml @ 75 mls/hr [id number] IV 02/19/19 01:04 03/21/19 01:03 02/20/19 03:46 Diphenhydramine HCl (Benadryl) 25 mg Q6H PRN ORAL Itching/Pruritis 02/19/19 01:15 03/21/19 01:14 Lactulose (Cephulac) 20 gm DAILY GT 02/19/19 09:00 03/21/19 08:59 02/20/19 08:37 Lorazepam (Ativan 2mg/ml 1ml) 2 mg Q4H PRN IV Agitation 02/19/19 01:00 02/26/19 00:59 02/20/19 03:47 Morphine Sulfate (Morphine Sulfate) 2 mg EVERY 4 HOURS PRN IVP severe Pain (Pain Scale 7-10) 02/19/19 01:15 02/26/19 01:14 Nitroglycerin (Ntg) 0.4 mg Q5M X 3 DOSES PRN SL Prn Chest Pain 02/19/19 01:15 03/21/19 01:14 Ondansetron HCl (Zofran) 4 mg Q6H PRN IVP Nausea & Vomiting 02/19/19 01:15 03/21/19 01:14 Polyethylene Glycol (Miralax) 17 gm HSPRN PRN ORAL Constipation 02/19/19 01:15 03/21/19 01:14 Quetiapine Fumarate (SEROquel) 50 mg DAILY GT 02/19/19 09:00 03/21/19 08:59 02/20/19 08:37 Sertraline HCl (Zoloft) 50 mg QHS GT 02/19/19 21:00 03/21/19 20:59 02/19/19 21:32 Allergies: Coded Allergies: No Known Allergies (Unverified , 02/18/19) ROS Limited/Unobtainable: Yes Subjective 43 YO M with vent dependent respiratory failure and anoxic brain encephalopathy admitted with anemia. Cover for Int Med-Dr Washington. NAIMA Objective Last Vital Signs Date Time Temp Pulse Resp B/P (MAP) Pulse Ox O2 Delivery O2 Flow Rate FiO2 02/20/19 14:11 84 29 100 Mechanical Ventilator 40 02/20/19 12:00 97.9 133/83 (100) 02/18/19 21:05 5.0 Laboratory Tests Test 02/20/19 06:10 White Blood Count 13.7 K/UL (4.8-10.8) H Red Blood Count 3.06 M/UL (4.70-6.10) L Hemoglobin 9.5 G/DL (14.2-18.0) L Hematocrit 29.6 % (42.0-52.0) L Mean Corpuscular Volume 97 FL (80-99) Mean Corpuscular Hemoglobin 31.2 PG (27.0-31.0) H Mean Corpuscular Hemoglobin Concent 32.2 G/DL (32.0-36.0) Red Cell Distribution Width 13.1 % (11.6-14.8) Platelet Count 352 K/UL (150-450) Mean Platelet Volume 8.8 FL (6.5-10.1) Neutrophils (%) (Auto) 65.9 % (45.0-75.0) Lymphocytes (%) (Auto) 22.6 % (20.0-45.0) Monocytes (%) (Auto) 7.8 % (1.0-10.0) Eosinophils (%) (Auto) 2.9 % (0.0-3.0) Basophils (%) (Auto) 0.9 % (0.0-2.0) Prothrombin Time 11.8 SEC (9.30-11.50) H Prothromb Time International Ratio 1.1 (0.9-1.1) Activated Partial Thromboplast Time 25 SEC (23-33) Sodium Level 151 MMOL/L (136-145) H Potassium Level 3.7 MMOL/L (3.5-5.1) Chloride Level 113 MMOL/L (98-107) H Carbon Dioxide Level 30 MMOL/L (21-32) Anion Gap 8 mmol/L (5-15) Blood Urea Nitrogen 31 mg/dL (7-18) H Creatinine 1.5 MG/DL (0.55-1.30) H Estimat Glomerular Filtration Rate 51.1 mL/min (>60) Glucose Level 118 MG/DL (74-106) H Hemoglobin A1c 5.8 % (4.3-6.0) Calcium Level 8.8 MG/DL (8.5-10.1) Phosphorus Level 3.9 MG/DL (2.5-4.9) Magnesium Level 1.5 MG/DL (1.8-2.4) L Iron Level 53 ug/dL (50-175) Total Iron Binding Capacity 193 ug/dL (250-450) L Percent Iron Saturation 27 % (15-50) Unsaturated Iron Binding 140 ug/dL (112-346) Total Bilirubin 0.5 MG/DL (0.2-1.0) Aspartate Amino Transf (AST/SGOT) 62 U/L (15-37) H Alanine Aminotransferase (ALT/SGPT) 84 U/L (12-78) H Alkaline Phosphatase 122 U/L (46-116) H Total Protein 8.1 G/DL (6.4-8.2) Albumin 3.2 G/DL (3.4-5.0) L Globulin 4.9 g/dL Albumin/Globulin Ratio 0.7 (1.0-2.7) L Carcinoembryonic Antigen Pending Folate 22.3 NG/ML (8.6-58.9) Free Thyroxine 0.93 NG/DL (0.76-1.46) Hepatitis A IgM Antibody Pending Hepatitis B Surface Antigen Pending Hepatitis B Core IgM Antibody Pending Hepatitis C Antibody Pending Microbiology Date/Time Source Procedure Growth Status 02/18/19 17:15 Blood Blood Culture - Preliminary NO GROWTH AFTER 24 HOURS Resulted 02/18/19 17:00 Blood Blood Culture - Preliminary NO GROWTH AFTER 24 HOURS Resulted 02/18/19 20:00 Rectum Received Intake and Output 02/19/19 02/20/19 19:00 07:00 Intake Total 940 ml 962.5 ml Output Total 325 ml 5 ml Balance 615 ml 957.5 ml Intake Free Water 40 ml IV Total 750 ml 542.5 ml Tube Feeding 150 ml 360 ml Other 60 ml Output Urine Total 325 ml 5 ml # Bowel Movements 3 Objective PHYSICAL EXAMINATION: GENERAL: The patient is well-developed and well-nourished. Nonverbal male, who is ventilator dependent. HEENT: Eyes, pupils equal and responsive to light and accommodation. Extraocular movements are intact. NECK: tracheostomy; Supple without lymphadenopathy. Tracheostomy is present. CARDIOVASCULAR: Regular rate. S1 and S2 normal without murmurs, rubs, or gallops. CHEST: Mechanical vent; A few diffuse wheezes bilaterally. Otherwise, clear to auscultation without rales. ABDOMEN: Soft, nontender, and nondistended. Positive bowel sounds. No evidence of hepatosplenomegaly. Currently, no rebound or guarding noted. EXTREMITIES: Negative for clubbing, cyanosis, or edema. NEUROLOGIC: Unable to assess. Assessment/Plan Assessment/Plan ASSESSMENT: This is a 43-year-old male with. 1. Anemia. 2. Vent-dependent respiratory failure. 3. Coronary artery disease, status post ST elevated myocardial infarction. 4. Anoxic encephalopathy. 5. Dysphagia. 6. Renal failure. 7. Hypertension. 8. Hypercholesteremia. 9. Schizophrenia. PLAN: 1. A Gastroenterology consultation is obtained with Dr. Servando Sharif Await possible endoscopy/colonoscopy on Thu02/22/19 2. Vent-dependent respiratory failure. A Pulmonary consultation obtained with Dora Dietrich. We will follow recommendation of Pulmonary. 3. Coronary artery disease/ST-elevated myocardial infarction. A Cardiology consultation with Dr. Tod Smalls. 4. Anoxic encephalopathy. 5. Dysphagia. The patient is status post percutaneous endoscopic gastrostomy tube placement. 6. Renal failure. A Nephrology consultation obtained with Dr. Altman. 7. Hypertension. Continue Coreg as above. 8. Hypercholesterolemia. Continue atorvastatin as above. 9. Schizophrenia . 10. S/P transfusion 1 unit PRBC 02/18/19 Carmelo Seth MD Feb 20, 2019 14:26
[2019-02-20] MEDS ORDERED: D5 1/2NS 1000ml IV ONE (15:37)
[2019-02-20 16:00] VITALS: BP 131/87
--- NOTE | 2019-02-20 17:55 | NUR ---
CASE MANAGEMENT: REVIEW SI: ANEMIA . CHRONIC RESP FAILURE . T 98.0 HR 88 RR 29 BP 131/87 SAT 100% MECH VENT FIO2 40 WBC 13.7 H/H 9.5/29.6 NA 151 AST 62 ALT 84 ALK PHOS 122 IS: LACTULOSE GT QD ALBUTEROL HHN Q8HR D5 1/2 NS IVF @ 75ML/HR STEP DOWN UNIT STATUS DCP: PATIENT IS FROM [facility]
--- NOTE | 2019-02-20 18:26 | NUR ---
NURSE NOTES: patient just had bowel movement but unable to collect stool for OB. stool is liquid and just stained the bed cover. will endorse accordingly.
--- NOTE | 2019-02-20 19:10 | NUR ---
HAND-OFF: Report given to tiny hernandez.
--- NOTE | 2019-02-20 19:11 | NUR ---
NURSE NOTES: Received patient from PHILIP Shepard. Will continue plan of care.
[2019-02-20 20:00] VITALS: BP 156/91
[2019-02-20] MEDS: Sertraline 50mg tab GT SCH (20:37)
[2019-02-20] MEDS: Atorvastatin 80mg tab GT SCH (20:37)
--- NOTE | 2019-02-20 20:55 | NUR ---
NURSE NOTES: Patient has BM; liquid- like yellow. Unable to collect for OB stool. Dr. Sharif made aware this AM when came to see patient. Informed him that patient is able to pass BM but unable to collect; also made aware of stool color and consistency.
[2019-02-21] VITALS: BP 145/82
[2019-02-21 04:00] VITALS: BP 135/77
[2019-02-21 05:16] LABS: BASOPHILS % (AUTO) 0.6 % (0.0-2.0); EOSINOPHILS % (AUTO) 2.5 % (0.0-3.0); HEMATOCRIT 28.8 % (42.0-52.0); HEMOGLOBIN 9.4 G/DL (14.2-18.0); LYMPHOCYTES % (AUTO) 18.7 % (20.0-45.0); MEAN CORPUSCULAR VOLUME 97 FL (80-99); MONOCYTES % (AUTO) 7.3 % (1.0-10.0); NEUTROPHILS % (AUTO) 70.9 % (45.0-75.0); PLATELET COUNT 315 K/UL (150-450); RED BLOOD COUNT 2.98 M/UL (4.70-6.10); WHITE BLOOD COUNT 15.7 K/UL (4.8-10.8)
[2019-02-21 05:30] LABS: ALANINE AMINOTRANSFERASE 62 U/L (12-78); ALBUMIN 3.1 G/DL (3.4-5.0); ALBUMIN/GLOBULIN RATIO 0.7 (1.0-2.7); ALKALINE PHOSPHATASE 121 U/L (46-116); ANION GAP 8 mmol/L (5-15); ASPARTATE AMINO TRANSFERASE 55 U/L (15-37); BILIRUBIN,TOTAL 0.5 MG/DL (0.2-1.0); BLOOD UREA NITROGEN 23 mg/dL (7-18); CALCIUM 8.7 MG/DL (8.5-10.1); CARBON DIOXIDE 28 MMOL/L (21-32); CHLORIDE 110 MMOL/L (98-107); CREATININE 1.3 MG/DL (0.55-1.30); POTASSIUM 3.8 MMOL/L (3.5-5.1); SODIUM 146 MMOL/L (136-145)
[2019-02-21] MEDS: D5 1/2NS 1,000 ML IV SCH (06:38)
[2019-02-21] MEDS: Albuterol/Ipratropium 3ml neb HHN SCH ×2 (06:48→15:36)
--- NOTE | 2019-02-21 07:10 | NUR ---
HAND-OFF: Report given to .HANDY PALACIOS.
--- NOTE | 2019-02-21 07:15 | NUR ---
NURSE NOTES: RECEIVED BED SIDE REPORT FROM DENVER PALACIOS OF NOC SHIFT. RECEIVED PT WITH HOB ELEVATED 45 DEGREE AWAKE NON-VERBAL AND AGITATED.PT IS TRACH TO VENT DEPENDENT TOLERATING WELL CURRENTS VENT SETTINGS,SX,D AND RENDERED TRACH CARE .PT REPOSITIONED IN BED AND RELEASED BILAT SOFT WRIST RESTRAINS AND PROVIDE PASSIVE ROM TO UPPER EXT,S.PT RECEIVING GTF ,TOLERATING WELL ,NO RESIDUAL NOTED AT THIS TIME. PT VERY RESISTANT WITH NSG CARE. PT KEEP CLEAN AND DRY POSSIBLE. PT REMAINS FREE OF INJURIES AT THIS TIME. WILL CONT TO MONITOR.
--- NOTE | 2019-02-21 07:25 | NUR ---
HAND-OFF: Report given to PHILIP FERNANDEZ.
[2019-02-21 08:00] VITALS: BP 136/89
[2019-02-21] MEDS: LORazepam Inj 2mg/ml 1ml IV PRN ×3 (08:11→23:59)
[2019-02-21] MEDS: Aspirin EC 81mg tab ORAL SCH (08:11)
[2019-02-21] MEDS: Lactulose 20gm/30ml UDC GT SCH (08:12)
--- NOTE | 2019-02-21 11:15 | General Progress Note ---
Assessment/Plan Assessment/Plan: Anemia chronic respiratory failure GT dependent elevated LFTS GTF Anemia work up abd us reviewed hepatitis panel fu labs improving LFTS Subjective ROS Limited/Unobtainable: No Allergies: Coded Allergies: No Known Allergies (Unverified , 02/18/19) Objective Last 24 Hour Vital Signs Date Time Temp Pulse Resp B/P (MAP) Pulse Ox O2 Delivery O2 Flow Rate FiO2 02/21/19 10:45 90 26 40 02/21/19 08:32 84 20 40 02/21/19 08:00 98.6 91 18 136/89 (105) 97 02/21/19 06:54 99 16 100 Mechanical Ventilator 40 02/21/19 06:49 90 20 40 02/21/19 06:47 90 20 100 Mechanical Ventilator 40 02/21/19 04:59 88 23 40 02/21/19 04:00 40 02/21/19 04:00 97.5 103 31 135/77 (96) 100 02/21/19 04:00 Mechanical Ventilator 02/21/19 03:26 102 02/21/19 03:01 86 27 40 02/21/19 01:18 83 16 40 02/21/19 00:00 Mechanical Ventilator 02/21/19 00:00 97.9 94 19 145/82 (103) 100 02/20/19 23:31 106 02/20/19 22:48 94 25 100 Mechanical Ventilator 40 02/20/19 22:38 97 26 100 Mechanical Ventilator 40 02/20/19 22:37 97 28 40 02/20/19 21:02 84 23 40 02/20/19 20:00 Mechanical Ventilator 02/20/19 20:00 97.9 107 22 156/91 (112) 98 02/20/19 20:00 40 02/20/19 19:45 102 02/20/19 18:49 89 26 40 02/20/19 16:55 94 20 40 02/20/19 16:00 98.0 88 29 131/87 (102) 100 02/20/19 16:00 Mechanical Ventilator 02/20/19 16:00 40 02/20/19 15:30 69 02/20/19 14:30 88 19 40 02/20/19 14:21 88 20 100 Mechanical Ventilator 40 02/20/19 14:11 84 29 100 Mechanical Ventilator 40 02/20/19 13:17 92 29 40 02/20/19 12:00 97.9 91 30 133/83 (100) 100 02/20/19 12:00 40 02/20/19 12:00 Mechanical Ventilator 02/20/19 11:47 68 Intake and Output 02/20/19 02/21/19 18:59 06:59 Intake Total 1805 ml 1728.75 ml Output Total 400 ml Balance 1405 ml 1728.75 ml Intake Free Water 110 ml 100 ml IV Total 975 ml 808.75 ml Tube Feeding 720 ml 720 ml Other 100 ml Output Urine Total 400 ml # Voids 3 3 # Bowel Movements 4 4 Laboratory Tests 02/21/19 03:10: White Blood Count 15.7H, Red Blood Count 2.98L, Hemoglobin 9.4L, Hematocrit 28.8L, Mean Corpuscular Volume 97, Mean Corpuscular Hemoglobin 31.4H, Mean Corpuscular Hemoglobin Concent 32.5, Red Cell Distribution Width 13.0, Platelet Count 315, Mean Platelet Volume 8.4, Neutrophils (%) (Auto) 70.9, Lymphocytes (% ) (Auto) 18.7L, Monocytes (%) (Auto) 7.3, Eosinophils (%) (Auto) 2.5, Basophils (%) (Auto) 0.6, Sodium Level 146H, Potassium Level 3.8, Chloride Level 110H, Carbon Dioxide Level 28, Anion Gap 8, Blood Urea Nitrogen 23H, Creatinine 1.3, Estimat Glomerular Filtration Rate > 60, Glucose Level 105, Calcium Level 8.7, Total Bilirubin 0.5, Aspartate Amino Transf (AST/SGOT) 55H, Alanine Aminotransferase (ALT/SGPT) 62, Alkaline Phosphatase 121H, Total Protein 7.8, Albumin 3.1L, Globulin 4.7, Albumin/Globulin Ratio 0.7L Height (Feet): 5 Height (Inches): 11.00 Weight (Pounds): 200 General Appearance: lethargic EENT: normal ENT inspection Neck: supple Cardiovascular: normal rate Respiratory/Chest: decreased breath sounds Abdomen: normal bowel sounds, non tender, soft Extremities: non-tender Servando Sharif MD Feb 21, 2019 11:15
[2019-02-21 12:00] VITALS: BP 100/68
--- NOTE | 2019-02-21 12:52 | NUR ---
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 98.6 HR 91 RR 24 B/P 156/89 AC 16 TV 500 FIO2 40% PEEP 5 WBC 15.7 NA 146 BUN 23 AST 55 ALK PHOS 121 IS: IVF D5NS @75ML/HR ZOLOFT GT SEROQUEL GT STEP DOWN STATUS
[2019-02-21 16:00] VITALS: BP 115/71
--- NOTE | 2019-02-21 17:26 | NUR ---
NURSE NOTES: PT VERY AGITATED MEDICATED ATIVAN 2MG IVP PER M.D ORDERS. WILL CONT TO MONITOR .PT REMAINS FREE OF INJURIES AT THIS TIME. PT FAMILY AT BED SIDE. ALL NEEDS ATTENDED AND ANTICIPATED.
--- NOTE | 2019-02-21 18:50 | Internal Med Progress Note ---
Subjective Date of Service: Feb 21, 2019 Physician Name Carmelo Seth Attending Physician Shane Washington MD Current Medications Medications (Trade) Dose Ordered Sig/Rasta Route PRN Reason Start Time Stop Time Status Last Admin Dose Admin Acetaminophen (Tylenol) 650 mg Q6H PRN ORAL Mild Pain/Temp > 100.5 02/19/19 01:00 03/21/19 00:59 Albuterol/ Ipratropium (Albuterol/ Ipratropium) 3 ml Q8HRT HHN 02/19/19 07:00 02/24/19 06:59 02/21/19 15:36 Aspirin (Ecotrin) 81 mg DAILY ORAL 02/19/19 09:00 03/21/19 08:59 02/21/19 08:11 Atorvastatin Calcium (Lipitor) 80 mg BEDTIME GT 02/19/19 21:00 03/21/19 20:59 02/20/19 20:37 Cetirizine HCl (ZyrTEC) 10 mg DAILY ORAL 02/19/19 09:00 03/21/19 08:59 02/21/19 08:11 Dextrose (Dextrose 50%) STAT PRN IV Hypoglycemia 02/19/19 01:15 03/21/19 01:14 Dextrose/Sodium Chloride 1,000 ml @ 75 mls/hr [id number] IV 02/19/19 01:04 03/21/19 01:03 02/21/19 06:38 Diphenhydramine HCl (Benadryl) 25 mg Q6H PRN ORAL Itching/Pruritis 02/19/19 01:15 03/21/19 01:14 Lactulose (Cephulac) 20 gm DAILY GT 02/19/19 09:00 03/21/19 08:59 02/21/19 08:12 Lorazepam (Ativan 2mg/ml 1ml) 2 mg Q4H PRN IV Agitation 02/19/19 01:00 02/26/19 00:59 02/21/19 17:25 Morphine Sulfate (Morphine Sulfate) 2 mg EVERY 4 HOURS PRN IVP severe Pain (Pain Scale 7-10) 02/19/19 01:15 02/26/19 01:14 Nitroglycerin (Ntg) 0.4 mg Q5M X 3 DOSES PRN SL Prn Chest Pain 02/19/19 01:15 03/21/19 01:14 Ondansetron HCl (Zofran) 4 mg Q6H PRN IVP Nausea & Vomiting 02/19/19 01:15 03/21/19 01:14 Polyethylene Glycol (Miralax) 17 gm HSPRN PRN ORAL Constipation 02/19/19 01:15 03/21/19 01:14 Quetiapine Fumarate (SEROquel) 50 mg DAILY GT 02/19/19 09:00 03/21/19 08:59 02/21/19 08:11 Sertraline HCl (Zoloft) 50 mg QHS GT 02/19/19 21:00 03/21/19 20:59 02/20/19 20:37 Allergies: Coded Allergies: No Known Allergies (Unverified , 02/18/19) ROS Limited/Unobtainable: Yes Subjective 43 YO M with vent dependent respiratory failure and anoxic brain encephalopathy admitted with anemia. Cover for Int Med-Dr Washington. NAIMA Objective Last Vital Signs Date Time Temp Pulse Resp B/P (MAP) Pulse Ox O2 Delivery O2 Flow Rate FiO2 02/21/19 16:54 78 24 40 02/21/19 16:00 Mechanical Ventilator 02/21/19 16:00 98.8 115/71 (86) 100 02/18/19 21:05 5.0 Laboratory Tests Test 02/21/19 03:10 White Blood Count 15.7 K/UL (4.8-10.8) H Red Blood Count 2.98 M/UL (4.70-6.10) L Hemoglobin 9.4 G/DL (14.2-18.0) L Hematocrit 28.8 % (42.0-52.0) L Mean Corpuscular Volume 97 FL (80-99) Mean Corpuscular Hemoglobin 31.4 PG (27.0-31.0) H Mean Corpuscular Hemoglobin Concent 32.5 G/DL (32.0-36.0) Red Cell Distribution Width 13.0 % (11.6-14.8) Platelet Count 315 K/UL (150-450) Mean Platelet Volume 8.4 FL (6.5-10.1) Neutrophils (%) (Auto) 70.9 % (45.0-75.0) Lymphocytes (%) (Auto) 18.7 % (20.0-45.0) L Monocytes (%) (Auto) 7.3 % (1.0-10.0) Eosinophils (%) (Auto) 2.5 % (0.0-3.0) Basophils (%) (Auto) 0.6 % (0.0-2.0) Sodium Level 146 MMOL/L (136-145) H Potassium Level 3.8 MMOL/L (3.5-5.1) Chloride Level 110 MMOL/L (98-107) H Carbon Dioxide Level 28 MMOL/L (21-32) Anion Gap 8 mmol/L (5-15) Blood Urea Nitrogen 23 mg/dL (7-18) H Creatinine 1.3 MG/DL (0.55-1.30) Estimat Glomerular Filtration Rate > 60 mL/min (>60) Glucose Level 105 MG/DL (74-106) Calcium Level 8.7 MG/DL (8.5-10.1) Total Bilirubin 0.5 MG/DL (0.2-1.0) Aspartate Amino Transf (AST/SGOT) 55 U/L (15-37) H Alanine Aminotransferase (ALT/SGPT) 62 U/L (12-78) Alkaline Phosphatase 121 U/L (46-116) H Total Protein 7.8 G/DL (6.4-8.2) Albumin 3.1 G/DL (3.4-5.0) L Globulin 4.7 g/dL Albumin/Globulin Ratio 0.7 (1.0-2.7) L Microbiology Date/Time Source Procedure Growth Status 02/18/19 20:00 Nasal Nares MRSA Culture - Final Staphylococcus Aureus - Mrsa Complete 02/18/19 20:00 Rectum - Final NO CARBAPENEM-RESISTANT ENTEROBACTERI... Complete 02/18/19 20:00 Rectum VRE Culture - Final NO VANCOMYCIN RESISTANT ENTEROCOCCUS ... Complete Intake and Output 02/20/19 02/21/19 19:00 07:00 Intake Total 1730 ml 1763.75 ml Output Total 400 ml Balance 1330 ml 1763.75 ml Intake Free Water 110 ml 100 ml IV Total 900 ml 843.75 ml Tube Feeding 720 ml 720 ml Other 100 ml Output Urine Total 400 ml # Voids 3 3 # Bowel Movements 4 4 Objective PHYSICAL EXAMINATION: GENERAL: The patient is well-developed and well-nourished. Nonverbal male, who is ventilator dependent. HEENT: Eyes, pupils equal and responsive to light and accommodation. Extraocular movements are intact. NECK: tracheostomy; Supple without lymphadenopathy. Tracheostomy is present. CARDIOVASCULAR: Regular rate. S1 and S2 normal without murmurs, rubs, or gallops. CHEST: Mechanical vent; A few diffuse wheezes bilaterally. Otherwise, clear to auscultation without rales. ABDOMEN: Soft, nontender, and nondistended. Positive bowel sounds. No evidence of hepatosplenomegaly. Currently, no rebound or guarding noted. EXTREMITIES: Negative for clubbing, cyanosis, or edema. NEUROLOGIC: Unable to assess. Assessment/Plan Assessment/Plan ASSESSMENT: This is a 43-year-old male with. 1. Anemia. 2. Vent-dependent respiratory failure. 3. Coronary artery disease, status post ST elevated myocardial infarction. 4. Anoxic encephalopathy. 5. Dysphagia. 6. Renal failure. 7. Hypertension. 8. Hypercholesteremia. 9. Schizophrenia. 10. Elevated liver funct tests 11. hypernatremia PLAN: 1. A Gastroenterology consultation is obtained with Dr. Servando Sharif Await possible endoscopy/colonoscopy on 02/22/19 2. Vent-dependent respiratory failure. A Pulmonary consultation obtained with Dora Dietrich. We will follow recommendation of Pulmonary. 3. Coronary artery disease/ST-elevated myocardial infarction. A Cardiology consultation with Dr. Tod Smalls. 4. Anoxic encephalopathy. 5. Dysphagia. The patient is status post percutaneous endoscopic gastrostomy tube placement. 6. Renal failure. A Nephrology consultation obtained with Dr. Altman. 7. Hypertension. Continue Coreg as above. 8. Hypercholesterolemia. Continue atorvastatin as above. 9. Schizophrenia 10. S/P transfusion 1 unit PRBC 02/18/19 11. D5W IV fluids Carmelo Seth MD Feb 21, 2019 18:50
--- NOTE | 2019-02-21 19:15 | NUR ---
NURSE NOTES: Received patient from Rafa RN. Patient is in bed trach to vent Shiley 8 saturating at 96% with no signs of acute distress. Vent settings AC 16, TV 500, PEEP 5, @40%, tube feeding at goal, IV intact and patent, and skin issues noted. Bed at its lowest position, call light in reach and X3 bed rails are up. Will continue to monitor.
--- NOTE | 2019-02-21 19:22 | NUR ---
RESPIRATORY NOTE: Received pt on AC 16, 500VT, 40%, PEEP +5. Pt is trach-dependent w/ a cuffed, Shiley 8 tube. Pt awake/disoriented. B/S cleve. rhonchi, sxn small to moderate amounts of thick, pale-yellow secretions. Vent plugged into red outlet, ambubag at bedside. Pt in no apparent distress at this time. Will continue plan of care.
[2019-02-21 20:00] VITALS: BP 112/72
[2019-02-21] MEDS ORDERED: D5W w/KCl 20mEq 1,000 ML IV SCH (20:00)
[2019-02-21] MEDS: Atorvastatin 80mg tab GT SCH (20:30)
[2019-02-21] MEDS: Sertraline 50mg tab GT SCH (20:30)
--- NOTE | 2019-02-21 20:43 | Pulmonolgy Critical Care Note ---
Critical Care - Asmt/Plan Problems: (1) Chronic respiratory failure (2) Vegetative state (3) CVA (cerebral vascular accident) (4) Depression (5) Symptomatic anemia Respiratory: monitor respiratory rate, adjust FIO2, CXR Cardiac: continue pressors, continue to monitor HR/BP Renal: F/U I&O, keep IV fluid, check electrolytes Infectious Disease: check cultures, continue antibiotics Gastrointestinal: continue feedings/current rate Endocrine: check TSH Hematologic: monitor H/H, transfuse if hgb<8.5 Neurologic: PRN Ativan, keep patient comfortable Prophylaxis: Protonix Disposition: keep in ICU Notes Reviewed: personal fitness manager, renal Discussed with: nurses, consultants, porter sample casemanager technical support - Objective Last 24 Hour Vital Signs Date Time Temp Pulse Resp B/P (MAP) Pulse Ox O2 Delivery O2 Flow Rate FiO2 02/21/19 20:00 98.2 70 26 112/72 (85) 100 02/21/19 20:00 Mechanical Ventilator 02/21/19 20:00 40 02/21/19 19:19 76 22 40 02/21/19 16:54 78 24 40 02/21/19 16:00 72 02/21/19 16:00 40 02/21/19 16:00 Mechanical Ventilator 02/21/19 16:00 98.8 76 18 115/71 (86) 100 02/21/19 15:15 80 16 100 Mechanical Ventilator 40 02/21/19 15:00 69 26 40 02/21/19 15:00 80 26 97 Mechanical Ventilator 40 02/21/19 12:44 80 23 40 02/21/19 12:00 75 02/21/19 12:00 Mechanical Ventilator 02/21/19 12:00 98.5 69 19 100/68 (79) 100 02/21/19 12:00 40 02/21/19 10:45 90 26 40 02/21/19 08:32 84 20 40 02/21/19 08:00 98.6 91 18 136/89 (105) 97 02/21/19 08:00 83 02/21/19 08:00 Mechanical Ventilator 02/21/19 08:00 40 02/21/19 06:54 99 16 100 Mechanical Ventilator 40 02/21/19 06:49 90 20 40 02/21/19 06:47 90 20 100 Mechanical Ventilator 40 02/21/19 04:59 88 23 40 02/21/19 04:00 40 02/21/19 04:00 97.5 103 31 135/77 (96) 100 02/21/19 04:00 Mechanical Ventilator 02/21/19 03:26 102 02/21/19 03:01 86 27 40 02/21/19 01:18 83 16 40 02/21/19 00:00 Mechanical Ventilator 02/21/19 00:00 97.9 94 19 145/82 (103) 100 02/20/19 23:31 106 02/20/19 22:48 94 25 100 Mechanical Ventilator 40 02/20/19 22:38 97 26 100 Mechanical Ventilator 40 02/20/19 22:37 97 28 40 02/20/19 21:02 84 23 40 Status: sedated HEENT: atraumatic Neck: full ROM Lungs: chest wall tender Abdomen: soft, active bowel sounds Extremities: edema Decubiti: stage Accucheck: 99 Critical Care - Subjective ROS Limited/Unobtainable: Yes Condition: critical EKG Rhythm: Sinus Rhythm FI02: 40 Vent Support Breath Rate: 16 Vent Support Mode: AC Vent Tidal Volume: 500 Sputum Amount: Small PEEP: 5.0 PIP: 15 Tube Feeding Amount: 60 I&O: Intake and Output 02/20/19 02/21/19 19:00 07:00 Intake Total 1730 ml 1763.75 ml Output Total 400 ml Balance 1330 ml 1763.75 ml Intake Free Water 110 ml 100 ml IV Total 900 ml 843.75 ml Tube Feeding 720 ml 720 ml Other 100 ml Output Urine Total 400 ml # Voids 3 3 # Bowel Movements 4 4 Labs: Laboratory Tests Test 02/21/19 03:10 White Blood Count 15.7 K/UL (4.8-10.8) H Red Blood Count 2.98 M/UL (4.70-6.10) L Hemoglobin 9.4 G/DL (14.2-18.0) L Hematocrit 28.8 % (42.0-52.0) L Mean Corpuscular Volume 97 FL (80-99) Mean Corpuscular Hemoglobin 31.4 PG (27.0-31.0) H Mean Corpuscular Hemoglobin Concent 32.5 G/DL (32.0-36.0) Red Cell Distribution Width 13.0 % (11.6-14.8) Platelet Count 315 K/UL (150-450) Mean Platelet Volume 8.4 FL (6.5-10.1) Neutrophils (%) (Auto) 70.9 % (45.0-75.0) Lymphocytes (%) (Auto) 18.7 % (20.0-45.0) L Monocytes (%) (Auto) 7.3 % (1.0-10.0) Eosinophils (%) (Auto) 2.5 % (0.0-3.0) Basophils (%) (Auto) 0.6 % (0.0-2.0) Sodium Level 146 MMOL/L (136-145) H Potassium Level 3.8 MMOL/L (3.5-5.1) Chloride Level 110 MMOL/L (98-107) H Carbon Dioxide Level 28 MMOL/L (21-32) Anion Gap 8 mmol/L (5-15) Blood Urea Nitrogen 23 mg/dL (7-18) H Creatinine 1.3 MG/DL (0.55-1.30) Estimat Glomerular Filtration Rate > 60 mL/min (>60) Glucose Level 105 MG/DL (74-106) Calcium Level 8.7 MG/DL (8.5-10.1) Total Bilirubin 0.5 MG/DL (0.2-1.0) Aspartate Amino Transf (AST/SGOT) 55 U/L (15-37) H Alanine Aminotransferase (ALT/SGPT) 62 U/L (12-78) Alkaline Phosphatase 121 U/L (46-116) H Total Protein 7.8 G/DL (6.4-8.2) Albumin 3.1 G/DL (3.4-5.0) L Globulin 4.7 g/dL Albumin/Globulin Ratio 0.7 (1.0-2.7) L Dora Dietrich MD Feb 21, 2019 20:43
[2019-02-22] VITALS: BP 139/81
[2019-02-22] MEDS: Albuterol/Ipratropium 3ml neb HHN SCH ×2 (00:06→07:06)
--- NOTE | 2019-02-22 01:45 | NUR ---
NURSE NOTES: Left a message for Dr Washington regarding multiple seizures observed. Pt was shaking and thrusting hips vigorously. BP 141/87 pulse of 107 temp. of 98.1, and RR 29.
[2019-02-22 04:00] VITALS: BP 129/78
[2019-02-22 05:15] LABS: BASOPHILS % (AUTO) 0.8 % (0.0-2.0); EOSINOPHILS % (AUTO) 2.8 % (0.0-3.0); HEMATOCRIT 29.1 % (42.0-52.0); HEMOGLOBIN 9.4 G/DL (14.2-18.0); LYMPHOCYTES % (AUTO) 22.2 % (20.0-45.0); MEAN CORPUSCULAR VOLUME 96 FL (80-99); MONOCYTES % (AUTO) 6.8 % (1.0-10.0); NEUTROPHILS % (AUTO) 67.4 % (45.0-75.0); PLATELET COUNT 302 K/UL (150-450); RED BLOOD COUNT 3.03 M/UL (4.70-6.10); RED CELL DISTRIBUTION WIDTH 13.4 % (11.6-14.8); WHITE BLOOD COUNT 13.6 K/UL (4.8-10.8)
[2019-02-22 05:43] LABS: ALANINE AMINOTRANSFERASE 63 U/L (12-78); ALBUMIN 3.1 G/DL (3.4-5.0); ALBUMIN/GLOBULIN RATIO 0.6 (1.0-2.7); ALKALINE PHOSPHATASE 120 U/L (46-116); ANION GAP 8 mmol/L (5-15); ASPARTATE AMINO TRANSFERASE 54 U/L (15-37); BILIRUBIN,TOTAL 0.5 MG/DL (0.2-1.0); BLOOD UREA NITROGEN 22 mg/dL (7-18); CALCIUM 9.1 MG/DL (8.5-10.1); CARBON DIOXIDE 29 MMOL/L (21-32); CHLORIDE 108 MMOL/L (98-107); CREATININE 1.3 MG/DL (0.55-1.30); SODIUM 144 MMOL/L (136-145)
--- NOTE | 2019-02-22 07:30 | NUR ---
NURSE NOTES: Received bedside report from Bernard PALACIOS. Pt. in bed, awake, non-verbal. No sign of distress. [facility]. vent with setting AC16/VT500/FiO2 of 40%/P5. HOB elevated at all times. On GTF with Osmolite 1.2 at 60cc/hr. Tolerating well. IV site at right FA #20g. in placed patent/intact running D5W +Kcl 20meq at 50cc/hr. Tolerating well. Bed in low position, locked. Call light within reach. Will cont. to monitor.
--- NOTE | 2019-02-22 07:30 | NUR ---
HAND-OFF: Report given to Flow RN.
[2019-02-22 08:00] VITALS: BP 138/94
[2019-02-22] MEDS: Lactulose 20gm/30ml UDC GT SCH (09:28)
[2019-02-22] MEDS: Aspirin EC 81mg tab ORAL SCH (09:30)
--- NOTE | 2019-02-22 11:04 | GI Progress Note ---
Assessment/Plan Problems: (1) Symptomatic anemia ICD Codes: D64.9 - Anemia, unspecified SNOMED: 476585375 (2) Low hemoglobin ICD Codes: D64.9 - Anemia, unspecified SNOMED: 331489126 Status: stable, unchanged Status Narrative Discussed with Dr. Sharif. Assessment/Plan Anemia chronic respiratory failure GT dependent elevated LFTS GTF Anemia work up abd us reviewed hepatitis panel negative OB stool r/o GI bleed fu labs improving LFTS The patient was seen and examined at bedside and all new and available data was reviewed in the patients chart. I agree with the above findings, impression and plan. (Patient seen earlier today. Signature stamp does not reflect patient encounter time.). - Servando Sharif MD Subjective Subjective limited Objective Last 24 Hour Vital Signs Date Time Temp Pulse Resp B/P (MAP) Pulse Ox O2 Delivery O2 Flow Rate FiO2 02/22/19 09:00 96 23 40 02/22/19 08:00 98.1 95 24 138/94 (109) 100 02/22/19 08:00 40 02/22/19 07:23 99 21 100 Mechanical Ventilator 40 02/22/19 07:09 94 25 100 Mechanical Ventilator 40 02/22/19 07:06 94 25 40 02/22/19 05:18 88 16 40 02/22/19 04:00 40 02/22/19 04:00 98.6 95 30 129/78 (95) 100 02/22/19 04:00 Mechanical Ventilator 02/22/19 03:58 97 02/22/19 03:30 91 32 40 02/22/19 01:05 82 25 40 02/22/19 00:14 82 22 100 Mechanical Ventilator 40 02/22/19 00:04 82 24 99 Mechanical Ventilator 40 02/22/19 00:00 Mechanical Ventilator 02/22/19 00:00 98.1 97 28 139/81 (100) 100 02/22/19 00:00 68 02/21/19 22:37 77 17 40 02/21/19 21:00 78 18 40 02/21/19 20:00 98.2 70 26 112/72 (85) 100 02/21/19 20:00 Mechanical Ventilator 02/21/19 20:00 40 02/21/19 19:19 76 22 40 02/21/19 16:54 78 24 40 02/21/19 16:00 72 02/21/19 16:00 40 02/21/19 16:00 Mechanical Ventilator 02/21/19 16:00 98.8 76 18 115/71 (86) 100 02/21/19 15:15 80 16 100 Mechanical Ventilator 40 02/21/19 15:00 69 26 40 02/21/19 15:00 80 26 97 Mechanical Ventilator 40 02/21/19 12:44 80 23 40 02/21/19 12:00 75 02/21/19 12:00 Mechanical Ventilator 02/21/19 12:00 98.5 69 19 100/68 (79) 100 02/21/19 12:00 40 Intake and Output 02/21/19 02/22/19 19:00 07:00 Intake Total 1845 ml 1085 ml Output Total 550 ml 800 ml Balance 1295 ml 285 ml Intake Free Water 300 ml 200 ml IV Total 825 ml 225 ml Tube Feeding 720 ml 660 ml Output Urine Total 550 ml 800 ml Laboratory Tests Test 02/22/19 03:20 White Blood Count 13.6 K/UL (4.8-10.8) H Red Blood Count 3.03 M/UL (4.70-6.10) L Hemoglobin 9.4 G/DL (14.2-18.0) L Hematocrit 29.1 % (42.0-52.0) L Mean Corpuscular Volume 96 FL (80-99) Mean Corpuscular Hemoglobin 31.0 PG (27.0-31.0) Mean Corpuscular Hemoglobin Concent 32.2 G/DL (32.0-36.0) Red Cell Distribution Width 13.4 % (11.6-14.8) Platelet Count 302 K/UL (150-450) Mean Platelet Volume 8.4 FL (6.5-10.1) Neutrophils (%) (Auto) 67.4 % (45.0-75.0) Lymphocytes (%) (Auto) 22.2 % (20.0-45.0) Monocytes (%) (Auto) 6.8 % (1.0-10.0) Eosinophils (%) (Auto) 2.8 % (0.0-3.0) Basophils (%) (Auto) 0.8 % (0.0-2.0) Sodium Level 144 MMOL/L (136-145) Potassium Level 4.0 MMOL/L (3.5-5.1) Chloride Level 108 MMOL/L (98-107) H Carbon Dioxide Level 29 MMOL/L (21-32) Anion Gap 8 mmol/L (5-15) Blood Urea Nitrogen 22 mg/dL (7-18) H Creatinine 1.3 MG/DL (0.55-1.30) Estimat Glomerular Filtration Rate > 60 mL/min (>60) Glucose Level 94 MG/DL (74-106) Calcium Level 9.1 MG/DL (8.5-10.1) Total Bilirubin 0.5 MG/DL (0.2-1.0) Aspartate Amino Transf (AST/SGOT) 54 U/L (15-37) H Alanine Aminotransferase (ALT/SGPT) 63 U/L (12-78) Alkaline Phosphatase 120 U/L (46-116) H Total Protein 8.0 G/DL (6.4-8.2) Albumin 3.1 G/DL (3.4-5.0) L Globulin 4.9 g/dL Albumin/Globulin Ratio 0.6 (1.0-2.7) L Height (Feet): 5 Height (Inches): 11.00 Weight (Pounds): 200 General Appearance: no apparent distress Cardiovascular: normal rate Respiratory/Chest: normal breath sounds, no respiratory distress, other - mech vent Abdominal Exam: normal bowel sounds, non tender, soft, GT site - c/d/i Extremities: non-tender Vicky Neumann NP Feb 22, 2019 11:04
--- NOTE | 2019-02-22 11:57 | Pulmonology Progress Note ---
Assessment/Plan Problems: (1) CVA (cerebral vascular accident) (2) Vegetative state (3) Depression (4) Chronic respiratory failure Assessment/Plan h/h better dc to alf Subjective ROS Limited/Unobtainable: Yes Constitutional: Reports: no symptoms HEENT: Repors: no symptoms Respiratory: Reports: no symptoms Allergies: Coded Allergies: No Known Allergies (Unverified , 02/18/19) Objective Last 24 Hour Vital Signs Date Time Temp Pulse Resp B/P (MAP) Pulse Ox O2 Delivery O2 Flow Rate FiO2 02/22/19 11:21 73 16 40 02/22/19 09:00 96 23 40 02/22/19 08:00 98.1 95 24 138/94 (109) 100 02/22/19 08:00 Mechanical Ventilator 02/22/19 08:00 40 02/22/19 07:41 99 02/22/19 07:23 99 21 100 Mechanical Ventilator 40 02/22/19 07:09 94 25 100 Mechanical Ventilator 40 02/22/19 07:06 94 25 40 02/22/19 05:18 88 16 40 02/22/19 04:00 40 02/22/19 04:00 98.6 95 30 129/78 (95) 100 02/22/19 04:00 Mechanical Ventilator 02/22/19 03:58 97 02/22/19 03:30 91 32 40 02/22/19 01:05 82 25 40 02/22/19 00:14 82 22 100 Mechanical Ventilator 40 02/22/19 00:04 82 24 99 Mechanical Ventilator 40 02/22/19 00:00 Mechanical Ventilator 02/22/19 00:00 98.1 97 28 139/81 (100) 100 02/22/19 00:00 68 02/21/19 22:37 77 17 40 02/21/19 21:00 78 18 40 02/21/19 20:00 98.2 70 26 112/72 (85) 100 02/21/19 20:00 Mechanical Ventilator 02/21/19 20:00 40 02/21/19 19:19 76 22 40 02/21/19 16:54 78 24 40 02/21/19 16:00 72 02/21/19 16:00 40 02/21/19 16:00 Mechanical Ventilator 02/21/19 16:00 98.8 76 18 115/71 (86) 100 02/21/19 15:15 80 16 100 Mechanical Ventilator 40 02/21/19 15:00 69 26 40 02/21/19 15:00 80 26 97 Mechanical Ventilator 40 02/21/19 12:44 80 23 40 02/21/19 12:00 75 02/21/19 12:00 Mechanical Ventilator 02/21/19 12:00 98.5 69 19 100/68 (79) 100 02/21/19 12:00 40 Intake and Output 02/21/19 02/22/19 18:59 06:59 Intake Total 1830 ml 1195 ml Output Total 550 ml 800 ml Balance 1280 ml 395 ml Intake Free Water 250 ml 250 ml IV Total 860 ml 225 ml Tube Feeding 720 ml 720 ml Output Urine Total 550 ml 800 ml General Appearance: WD/WN HEENT: normocephalic Respiratory/Chest: chest wall non-tender, normal breath sounds Cardiovascular: normal peripheral pulses, regular rhythm Abdomen: normal bowel sounds, soft, non tender Genitourinary: normal external genitalia Skin: no rash, no lesions Lymphatic: no neck adenopathy Laboratory Tests 02/22/19 03:20: White Blood Count 13.6H, Red Blood Count 3.03L, Hemoglobin 9.4L, Hematocrit 29.1L, Mean Corpuscular Volume 96, Mean Corpuscular Hemoglobin 31.0, Mean Corpuscular Hemoglobin Concent 32.2, Red Cell Distribution Width 13.4, Platelet Count 302, Mean Platelet Volume 8.4, Neutrophils (%) (Auto) 67.4, Lymphocytes (% ) (Auto) 22.2, Monocytes (%) (Auto) 6.8, Eosinophils (%) (Auto) 2.8, Basophils ( %) (Auto) 0.8, Sodium Level 144, Potassium Level 4.0, Chloride Level 108H, Carbon Dioxide Level 29, Anion Gap 8, Blood Urea Nitrogen 22H, Creatinine 1.3, Estimat Glomerular Filtration Rate > 60, Glucose Level 94, Calcium Level 9.1, Total Bilirubin 0.5, Aspartate Amino Transf (AST/SGOT) 54H, Alanine Aminotransferase (ALT/SGPT) 63, Alkaline Phosphatase 120H, Total Protein 8.0, Albumin 3.1L, Globulin 4.9, Albumin/Globulin Ratio 0.6L Current Medications Medications (Trade) Dose Ordered Sig/Rasta Route PRN Reason Start Time Stop Time Status Last Admin Dose Admin Acetaminophen (Tylenol) 650 mg Q6H PRN ORAL Mild Pain/Temp > 100.5 02/19/19 01:00 03/21/19 00:59 Albuterol/ Ipratropium (Albuterol/ Ipratropium) 3 ml Q8HRT HHN 02/19/19 07:00 02/24/19 06:59 02/22/19 07:06 Aspirin (Ecotrin) 81 mg DAILY ORAL 02/19/19 09:00 03/21/19 08:59 02/22/19 09:30 Atorvastatin Calcium (Lipitor) 80 mg BEDTIME GT 02/19/19 21:00 03/21/19 20:59 02/21/19 20:30 Cetirizine HCl (ZyrTEC) 10 mg DAILY ORAL 02/19/19 09:00 03/21/19 08:59 02/22/19 09:38 Dextrose (Dextrose 50%) STAT PRN IV Hypoglycemia 02/19/19 01:15 03/21/19 01:14 Dextrose/ Electrolytes 1,000 ml @ 50 mls/hr Q20H IV 02/21/19 20:00 03/23/19 19:59 02/21/19 20:30 Diphenhydramine HCl (Benadryl) 25 mg Q6H PRN ORAL Itching/Pruritis 02/19/19 01:15 03/21/19 01:14 02/22/19 01:00 Lactulose (Cephulac) 20 gm DAILY GT 02/19/19 09:00 03/21/19 08:59 02/22/19 09:28 Lorazepam (Ativan 2mg/ml 1ml) 2 mg Q4H PRN IV Agitation 02/19/19 01:00 02/26/19 00:59 02/21/19 23:59 Morphine Sulfate (Morphine Sulfate) 2 mg EVERY 4 HOURS PRN IVP severe Pain (Pain Scale 7-10) 02/19/19 01:15 02/26/19 01:14 02/22/19 09:47 Nitroglycerin (Ntg) 0.4 mg Q5M X 3 DOSES PRN SL Prn Chest Pain 02/19/19 01:15 03/21/19 01:14 Ondansetron HCl (Zofran) 4 mg Q6H PRN IVP Nausea & Vomiting 02/19/19 01:15 03/21/19 01:14 Polyethylene Glycol (Miralax) 17 gm HSPRN PRN ORAL Constipation 02/19/19 01:15 03/21/19 01:14 Quetiapine Fumarate (SEROquel) 50 mg DAILY GT 02/19/19 09:00 03/21/19 08:59 02/22/19 09:28 Sertraline HCl (Zoloft) 50 mg QHS GT 02/19/19 21:00 03/21/19 20:59 02/21/19 20:30 Dora Dietrich MD Feb 22, 2019 11:57
[2019-02-22 12:00] VITALS: BP 114/65
--- NOTE | 2019-02-22 12:50 | NUR ---
NURSE NOTES: Called [facility] and gave report to Carson ORTIZ.
[2019-02-22] MEDS ORDERED: D5 1/2NS 1000ml IV ONE (14:36)
--- NOTE | 2019-02-22 14:41 | NUR ---
Discharge: Patient is being discharged to [facility] from medical care. Awake, non-verbal. All medical devices such as IV, cardiac cath technologist and ID band were removed. Patient wheeled out with all personal belongings via [facility] ambulance with RNRT. Family at bedside. Pt. remain stable.
--- NOTE | 2019-02-23 11:58 | Discharge Summary ---
Discharge Summary Discharge Summary _ DATE OF ADMISSION: 02/18/2019 DATE OF DISCHARGE: 02/22/2019 DISCHARGED BY: Dr. Washington REASON FOR ADMISSION: 43 years old male with past medical history of chronic respiratory failure , ventilator dependent, tracheostomy status, history of cardiac arrest, coronary artery disease, status post percutaneous transluminal coronary angioplasty, STEMI, hypertension, hyperlipidemia, schizophrenia, dysphagia, G-tube, nonverbal , was sent from the group home facility for evaluation of anemia. Laboratory work-up revealed mild leukocytosis WBC 11.3, hemoglobin 7.8, hematocrit 23.4. Platelet count 378. INR 1.1. Urinalysis revealed no evidence of urinary tract infection. Sodium 149. Potassium 3.5. BUN 47, creatinine 1.6. Glucose 112. Lactic acid 1.0. Troponin 0.054. Pro BNP 2915. EKG revealed sinus rhythm, no acute ischemic changes. AST 91 , ALT 103 , total CK 324 . Chest x-ray revealed no acute cardiopulmonary pathology. Patient subsequently admitted for further management. CONSULTANTS: pulmonary/anesthesiologist and critical care Dr. Dietrich GI specialist Dr. Sharif [facility] COURSE: Patient admitted to direct observational unit. Ventilator support and pulmonary toilet provided as per customer assistance associate recommendation. GI specialist follow. Hemoglobin and hematocrit were closely monitored. Patient received transfusion of 1 unit of packed red blood cells. Anemia work-up revealed evidence of anemia of chronic disease. Prior to discharge hemoglobin 9.4 , hematocrit 29.1. CEA within normal limits. LFT were closely monitored. Hepatitis panel was negative. Abdominal ultrasound revealed hepatic steatosis. LFT trended down : AST from 91 down to 54 and ALT from 103 down to 63. Elevated LFT possibly due to hepatic steatosis and/or statin. Continue to monitor LFT as outpatient. Blood culture were negative. Patient remained afebrile. Chest x-ray revealed no evidence of acute cardiopulmonary pathology. Urinalysis revealed no evidence of urinary tract infection. Leukocytosis was possibly reactive . Patient was kept off antibiotics. Echocardiogram revealed ejection fraction 45 to 50% with hypokinetic posterior wall and proximal to mid inferior ruiz. Mild left ventricular hypertrophy. Right ventricular systolic pressure of 7. Blood pressure was managed with beta-shaista Antiplatelet therapy with aspirin and statin continued Renal parameters and electrolytes were closely monitor Strict aspiration precautions were maintained. G-tube feeding continued. Patient was able to tolerate G-tube feeding. Renal parameters and electrolytes were closely monitor ed. Electrolytes corrected as needed , and nephrotoxins were avoided. Hypernatremia initially present, resolved. Magnesium corrected . BUN from 47 down to 22 , and creatinine from 1.6 down to 1.3. Acute renal failure resolved , possibly was due to dehydration. Pain management addressed as needed. Supportive care provided. Bowel regimen instituted. Psychiatric medications continued. Patient clinically stabilized and was ready for transfer back to group home facility for continuation of care. FINAL DIAGNOSES: Anemia Ventilator dependent respiratory failure Coronary artery disease , status post STEMI Anoxic encephalopathy Dysphagia, feeding by G-tube Acute renal failure- resolved Hypernatremia-resolved History of CVA Hypertension Hypercholesterolemia Schizophrenia Elevated LFT-trended down Depression Vegetative state DISCHARGE MEDICATIONS: See Medication Reconciliation list. DISCHARGE INSTRUCTIONS: Patient was discharged to the group home facility. Follow up with medical doctor at the facility. I have been assigned to dictate discharge summary for this account. I was not involved in the patient's management. Laverne Vaca NP Feb 23, 2019 11:58
--- NOTE | 2019-02-23 13:43 | Diagnostic Imaging Report ---
APPROVED REPORT CPT Code: 52219 Present Symptoms Comments: Screening BILATERAL: Imaging reveals a patent deep venous system bilaterally. There is no evidence of thrombus within the femoral, popliteal or tibial segments. The greater saphenous veins are also within normal limits. Doppler indicates normal spontaneous flow within these segments.
--- NOTE | 2019-02-23 19:16 | Cardiology Report ---
APPROVED REPORT EKG Measurement Heart [id number] Normal sinus rhythm Inferior infarct, age undetermined T wave abnormality, consider lateral ischemia Abnormal ECG
== END 2019-02-22 14:37 | DRG 663 ==
LOC: EDSEX 16:58 → EDBD 16:58 → EMR 17:32 → EDBEDREQ 17:52 → 2W 18:32 → EDBEDREQ 20:48
PROC: 30233N1 Transfusion of Nonautologous Red Blood Cells into Peripheral Vein, Percutaneous Approach (ICD-10-PCS; principal; 2019-02-18)
PROC: 5A1945Z Respiratory Ventilation, 24-96 Consecutive Hours (ICD-10-PCS; 2019-02-18)
DX: D64.89 Other specified anemias (principal); J96.10 Chronic respiratory failure, unspecified whether with hypoxia or hypercapnia; Z99.11 Dependence on respirator [ventilator] status; I25.10 Atherosclerotic heart disease of native coronary artery without angina pectoris; R13.10 Dysphagia, unspecified; G93.1 Anoxic brain damage, not elsewhere classified; R40.3 Persistent vegetative state; Z43.0 Encounter for attention to tracheostomy; Z43.1 Encounter for attention to gastrostomy; I25.2 Old myocardial infarction; Z95.5 Presence of coronary angioplasty implant and graft; E78.00 Pure hypercholesterolemia, unspecified; F20.9 Schizophrenia, unspecified; Z79.02 Long term (current) use of antithrombotics/antiplatelets; Z79.82 Long term (current) use of aspirin; E78.5 Hyperlipidemia, unspecified; E86.0 Dehydration; E87.0 Hyperosmolality and hypernatremia; I10 Essential (primary) hypertension; K76.0 Fatty (change of) liver, not elsewhere classified; F32.9 Major depressive disorder, single episode, unspecified
CPT/HCPCS: 36415; 71045; 76700; 80053; 81003; 82378; 82550; 82553; 82746; 83036; 83540; 83550; 83605; 83735; 83880; 84100; 84439; 84443; 84484; 85007; 85025; 85610; 85730; 86705; 86709; 86803; 86850; 86900; 86901; 86920; 87040; 87081; 87340; 93005; 93306; 93970; 94002; 94003; 94640; 94664; 96374; 96375; 99285; J7620